=== PATIENT | female | born 1980 | race African-American/Black ===

== ENCOUNTER 2019-03-19 09:11 | Emergency (ER) | payer OTHER ==
[~2019-03-19] VITALS: Ht 160 cm; Wt 65.0 kg
--- OUTSIDE RECORDS SUMMARY | 2019-03-19 09:15 | XMS REPORT | Summary of Care ---
Author Author [facility] - Health Organization [facility] - Health Address Unknown Phone Unavailable Care Team Providers Care Hockey Player Name Role Phone Chase Gil PCP Annalise Lowery MD 37 Reason for Visit * Reason Comments Assessment patient is having some symthoms, black out spell. weak Encounter Details Care Team Description Date Type Department Karyn Turner Rp, MD [address] [place] [id number] Assessment (patient is having some symthoms, black out spell. weak ) 03/15/[address] [facility] Hematology-Oncology - [address], [address] [place] [address] Allergies Comments Active Allergy Reactions Severity Noted Date Paradoxical rxn, ok to use children's dose Diphenhydramine Hcl Palpitations 05/04/2014 confusion Ciprofloxacin Anaphylaxis, 11/01/2014 Swelling, Unknown - See comments Meperidine Hcl 09/18/2005 Iron Dextran Anaphylaxis 11/20/2012 Morphine Hallucination 06/26/2011 s Makes very ill, nauseated. Penicillins Other - See 08/02/2015 comments Promethazine Hcl 09/18/2005 Rapid heart rate Ketorolac Tromethamine Unknown - See 07/02/2010 comments Diluted Iron Sucrose Anxiety, 10/19/2015 Hives documented as of this encounter (statuses as of 03/15/2019) Medications End Date Status Medication Sig Dispensed Refills Start Date Active acetaminophen (TYLENOL) Take 325 mg 0 325 mg tablet by mouth every 6 (six) hours as needed for Pain (scale 4-6). Active Lrkp-OA-[id number]-K-Fmzqerb TK 1 T PO BID 60 tablet 5 Sodium (FERRAPLUS 90) 9 54-0-51-120-50 az-xs-mrc-mg-mg TabIndications: Iron deficiency anemia secondary to inadequate dietary iron intake, Menorrhagia with regular cycle Active metroNIDAZOLE 0.75 % Insert 1 70 g 0 vaginal gelIndications: Applicator 9 BV (bacterial vaginosis) into vagina at bedtime. Active apixaban 2.5 mg Take 1 tablet 60 tablet 3 tabletIndications: by mouth 2 9 Hypercoagulable state, (two) times History of pulmonary daily. embolism, History of DVT (deep vein thrombosis) Active Polyethylene Glycol 3350 Take 1 Packet 12 Packet 0 (MIRALAX) 17 gram by mouth 9 powderIndications: every 2 (two) Constipation, unspecified hours as constipation type needed for Constipation for up to 12 doses. Active ondansetron 4 mg Take 1 tablet 10 tablet 0 disintegrating by mouth 9 tabletIndications: every 8 Constipation, unspecified (eight) hours constipation type as needed for Nausea and Vomiting (N/V) for up to 10 doses. Active dicyclomine (BENTYL) 20 Take 1 tablet 15 tablet 0 mg tabletIndications: by mouth 3 9 Generalized abdominal (three) times pain daily as needed for Abdominal pain. 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 Swelling, mass, or lump in head and neck 09/18/2005 Cellulitis and abscess of neck 09/18/2005 documented as of this encounter (statuses as of 03/15/2019) Social History Date Tobacco Use Types Packs/Day Years Used Never Smoker Cigarettes, 0.1 0.12 Cigars Smokeless Tobacco: Never Used Drinks/Week oz/Week Comments Alcohol Use socially No Sex Assigned at Date Recorded Not on file Industry Job Start Date Occupation Not on file Not on file Not on file Travel End Travel History Travel Start No recent travel history available. documented as of this encounter Last Filed Vital Signs Not on filedocumented in this encounter Plan of Treatment Care Team Description Date Type Specialty Karyn Turner Rp, MD [address] [place] [id number] [phone] 03/28/2019 Office Visit Oncology Order Schedule Name Type Priority Associated Diagnoses 10 Occurrences starting 03/15/2019 until 03/15/2020 CBC WITH DIFFERENTIAL LAB Routine Iron deficiency anemia secondary to inadequate dietary iron intake History of DVT (deep vein thrombosis) Iron deficiency 6 Occurrences starting 03/15/2019 until 03/15/2020 FERRITIN SERUM LAB Routine Iron deficiency anemia secondary to inadequate dietary iron intake History of DVT (deep vein thrombosis) Iron deficiency 10 Occurrences starting 03/15/2019 until 03/15/2020 VITAMIN B12, LEVEL LAB Routine Iron deficiency anemia secondary to inadequate dietary iron intake History of DVT (deep vein thrombosis) Iron deficiency 10 Occurrences starting 03/15/2019 until 03/15/2020 BASIC METABOLIC PANEL LAB Routine Iron deficiency anemia (NA, K, CL, CO2, GLUCOSE, secondary to inadequate BUN, CREATININE, CA) dietary iron intake History of DVT (deep vein thrombosis) Iron deficiency 10 Occurrences starting 03/15/2019 until 03/15/2020 FOLATE LAB Routine Iron deficiency anemia secondary to inadequate dietary iron intake History of DVT (deep vein thrombosis) Iron deficiency 10 Occurrences starting 03/15/2019 until 03/15/2020 HEPATIC FUNCTION PANEL LAB Routine Iron deficiency anemia (77666) (ALB,T.PRO,BILI secondary to inadequate T,BU/BC,ALT,AST,ALK PHOS) dietary iron intake History of DVT (deep vein thrombosis) Iron deficiency Health Maintenance Due Date Last Done Comments DTaP,Tdap,and Td Vaccines 02/26/1999 (1 - Tdap) INFLUENZA VACCINE (#1) 2019 PAP SMEAR 12/03/2021 12/03/2018, 10/17/2015, 01/02/2011, Additional history exists PNEUMOCOCCAL 0-64 YEARS Aged Out No longer eligible based COMBINED SERIES on patient's age to complete this topic documented as of this encounter Results Not on filedocumented in this encounter Visit Diagnoses Diagnosis Iron deficiency anemia secondary to inadequate dietary iron intake - Primary History of DVT (deep vein thrombosis) Personal history of venous thrombosis and embolism Iron deficiency Other disorders of iron metabolism documented in this encounter Insurance Type Payer Benefit Subscriber ID Effective Phone Address Plan / Dates Group [facility] NATHNA ALLISONABI [facility] [id number] 2018-P resent documented as of this encounter Advance Directives Patient Entry Level Civil Engineer Explanation Type Date Recorded Advance Directives 12/12/2014 10:50 AM and Living Will Power of Pencil Sorter 07/20/2015 10:00 AM
--- OUTSIDE RECORDS SUMMARY | 2019-03-19 09:15 | XMS REPORT | Summary of Care ---
Author Author [facility] - Health Organization [facility] - Health Address Unknown Phone Unavailable Care Team Providers Care Medical Records Analyst Name Role Phone Chase Gil PCP Annalise Lowery MD 37 Reason for Visit * Reason Comments Assessment patient is having some symthoms, black out spell. weak Encounter Details Care Team Description Date Type Department Karyn Turner Rp, MD [address] [place] [address] Assessment (patient is having some symthoms, black out spell. weak ) 03/15/2019 Telephone [facility] Hematology-Oncology - [address], [address] [place] [address] Allergies Comments Active Allergy Reactions [...] as needed for Pain (scale 4-6). 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 Swelling, mass, or lump in head and [...] Date Type Specialty Karyn Turner Rp, MD [address] [place] [address] [phone] 03/28/2019 Office Visit Oncology Order Schedule Name [...] FUNCTION PANEL LAB Routine Iron deficiency anemia (37416) (ALB,T.PRO,BILI secondary to inadequate T,BU/BC,ALT,AST,ALK PHOS) dietary [...] Effective Phone Address Plan / Dates Group [facility] [place]ATHAN ALLISONABI [facility] [id number] 2018-P resent documented as of this encounter Advance Directives Patient Instructor Decorating Explanation Type Date Recorded Advance Directives 12/12/2014 10:50 AM and Living Will Power of Irrigation Engineer 07/20/2015 10:00 AM
--- OUTSIDE RECORDS SUMMARY | 2019-03-19 09:15 | XMS REPORT | Summary of Care ---
Author Author [facility] - Health Organization [facility] - Health Address Unknown Phone Unavailable Care Team Providers Care Paper Spooler Name Role Phone Chase Gil PCP Annalise Lowery MD 37 Reason for Visit * Reason Comments Assessment patient is having some symthoms, black out spell. weak Encounter Details Care Team Description Date Type Department Karyn Turner Rp, MD [address] [place] [address] Assessment (patient is having some symthoms, black out spell. weak ) 03/15/2019 Telephone [facility] Hematology-Oncology - [address], [address] [place] [address] Allergies Comments Active Allergy Reactions [...] as needed for Pain (scale 4-6). 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 Swelling, mass, or lump in head and [...] Date Type Specialty Karyn Turner Rp, MD [address] [place] [address] [phone] 03/28/2019 Office Visit Oncology Order Schedule Name [...] FUNCTION PANEL LAB Routine Iron deficiency anemia (15562) (ALB,T.PRO,BILI secondary to inadequate T,BU/BC,ALT,AST,ALK PHOS) dietary [...] Effective Phone Address Plan / Dates Group [facility] NATHAN ALLISONABI [facility] [id number] 2018-P resent documented as of this encounter Advance Directives Patient Investigations Director Explanation Type Date Recorded Advance Directives 12/12/2014 10:50 AM and Living Will Power of Stone Hand 07/20/2015 10:00 AM
--- OUTSIDE RECORDS SUMMARY | 2019-03-19 09:15 | XMS REPORT | Summary of Care ---
Author Author [facility] - Health Organization [facility] - Health Address Unknown Phone Unavailable Care Team Providers Care Tobacco Grader Name Role Phone Chase Gil Margie PCP Annalise Lowery MD 37 Reason for Visit * Reason Comments LAB WORK Encounter Details Care Team Description Date Type Department Pathology [address] [place] [id number] Vls-Lab Iron deficiency anemia secondary to inadequate dietary iron intake; History of DVT (deep vein thrombosis); Iron deficiency 03/15/2019 Resistance [place] [facility] Visit PHLEBOTOMY/LAB [address] [facility] [address] [place] [address] Allergies Comments Active Allergy Reactions Severity Noted [...] as needed for Pain (scale 4-6). 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 Swelling, mass, or lump in head [...] Date Type Specialty Karyn Turner Rp, MD [address] [place] [address] [phone] 03/28/2019 Office Visit Oncology Health Maintenance Due Date Last Done Comments [...] intake History of DVT (deep vein thrombosis) Personal history of venous thrombosis and embolism Iron deficiency Other disorders of iron metabolism documented in this encounter Insurance Type Payer Benefit Subscriber ID Effective Phone Address Plan / Dates Group [facility] [id number] 2018-P resent documented as of this encounter Advance Directives Patient Assembly Riveter Explanation Type Date Recorded Advance Directives 12/12/2014 10:50 AM and Living Will Power of Window Cutter 07/20/2015 10:00 AM
--- OUTSIDE RECORDS SUMMARY | 2019-03-19 09:15 | XMS REPORT ---
[facility] Address Unknown Phone Unavailable Care Team Providers Care Bun Panner Name Role Phone Unavailable Unavailable Payers Payer Name Policy Type Policy Number Effective Date Expiration Date Problems This patient has no known problems. Allergies, Adverse Reactions, Alerts Allergy Name Allergy Type Status Severity Reaction(s) Onset Date Inactive Date Treating Clinician Comments promethazine HCl DA Active [place] 2014-11-06 00:00:00 ketorolac tromethamine DA Active [place] 2014-11-06 00:00:00 iron dextran complex DA Active [place] 2014-11-06 00:00:00 morphine DA Active U 2014-11-06 00:00:00 codeine DA Active [place] 2014-11-06 00:00:00 fentanyl DA Active U 2014-11-06 00:00:00 meperidine DA Active U 2014-11-06 00:00:00 diphenhydramine DA Active U 2014-11-06 00:00:00 Medications This patient has no known medications. Encounters Start Date/Time End Date/Time Encounter Type Admission Type Attending Clinicians Care Facility Care Department Encounter ID 2018-12-13 03:50:00 2018-12-13 03:50:00 Emergency E [id number] Results Test Description Test Time Test Comments Text Results Atomic Results Result Comments URINALYSIS COMPLETE 2018-12-29 14:12:00 UA COLOR (test code=COLU) STRAW YEL/STRAW UA APPEARANCE (test code=APPU) CLEAR CLEAR UA GLUCOSE DIPSTICK (test code=DGLUU) NEGATIVE NEGATIVE UA BILIRUBIN DIPSTICK (test code=BILU) NEGATIVE NEGATIVE UA KETONE DIPSTICK (test code=KETU) NEGATIVE NEGATIVE UA SPECIFIC GRAVITY (test code=SGU) > 1.060 1.005-1.030 UA BLOOD DIPSTICK (test code=CHADWICK) NEGATIVE NEGATIVE UA PH DIPSTICK (test code=MARYANNE) 6.0 5.0-7.0 UA PROTEIN DIPSTICK (test code=PROU) NEGATIVE NEGATIVE UA UROBILINIOGEN DIPSTICK (test code=URO) 0.2 mg/dL 0.2-1.0 UA NITRITE DIPSTICK (test code=NICHOL) NEGATIVE NEGATIVE UA LEUKOCYTE ESTERASE DIPSTICK (test code=LEUU) NEGATIVE NEGATIVE UA WBC (test code=WBCU) 0-3 WBC/HPF 0-3 UA RBC (test code=RBCU) 0-3 RBC/HPF 0-3 UA BACTERIA (test code=BACU) NONE SEEN /HPF NONE SEEN UA SQUAMOUS CELLS (test code=SQU) 0-5 /HPF NONE SEEN - CT ABD PELVIS [id number] 13:06:00 Name: KAREY BRO [facility] : 1980 Age/S: 38 / F [address] [place] [address] Blvd Unit #: [id number] Loc: [place] [address] Phys: Bernard Paiz Acct: [id number] Dis Date: Status: REG ER PHONE #: [phone] Exam Date: 12/29/2018 1237 FAX #: [phone] Reason: Chest pain, abdominal pain, blood in stool EXAMS: CPT CODE: [id number] CT ABD PELVIS W/CONT 05764 PROCEDURE: CTA CHEST CT abdomen and pelvis with contrast INDICATION: Chest pain and shortness of breath. Upper abdominal and epigastric pain COMPARISON: Chest x-ray 12/29/2018. TECHNIQUE: CTA of the pulmonary arteries was performed with 100 ml Isovue 300 intravenous contrast. Helical imaging performed apices to the lung bases. Multiplanar and 3-D MIP angiographic reconstructions are reviewed. Then, multiple axial images from the lung bases to the symphysis were obtained in the delayed venous phase. Coronal and sagittal reconstructed images were performed. CT imaging performed at this location utilizes radiation dose optimization techniques which include one or more of the following: -Automated exposure control -Adjustment of the mA and/or kV according to patient size -Use of iterative reconstruction technique CT Radiation Dose DLP 495.27 mGy-cm FINDINGS: CTA CHEST: PULMONARY ARTERIES: Normal enhancement without intraluminal filling defect. MEDIASTINUM: The thoracic aorta is normal. The mediastinal contents are normal. LUNGS: The lungs are clear. No pleural abnormality. MUSCULOSKELETAL: The skeleton is intact. CT ABDOMEN AND PELVIS: LIVER: Anterior right hepatic cyst measures 9 mm. GALLBLADDER: Normal. SPLEEN: Normal. PAGE 1 Signed Report (CONTINUED) Name: KAREY BRO [facility] : 1979 Age/S: 38 / F [address] [place] [address] Blvd Unit #: [id number] Loc: [place] [address] Phys: Bernard Paiz Acct: [id number] Dis Date: Status: REG ER PHONE #: [phone] Exam Date: 12/29/2018 1237 FAX #: [phone] Reason: Chest pain, abdominal pain, blood in stool EXAMS: CPT CODE: [id number] CT ABD PELVIS W/CONT 67080 <Continued> PANCREAS: Normal. ADRENALS: Normal. KIDNEYS: Right kidney is partially located in the pelvis. Left kidney appears normal. No hydronephrosis or renal stones are present bilaterally. BOWEL: The stomach, small bowel and colon are unremarkable. APPENDIX: Normal, retrocecal in location. PERITONEUM: No free intraperitoneal fluid or air. RETROPERITONEUM: No adenopathy. The aorta is normal. PELVIS: Uterus is anteverted. Uterus is heterogenous and enlarged measuring 10.8 cm in length. Defect in the anterior uterine wall may represent previous scar. Bilateral ovarian cysts are present, right greater than left. No lymphadenopathy is present. Urinary bladder is not distended. MUSCULOSKELETAL: The skeleton is intact. IMPRESSION: 1. No acute process within chest. No pulmonary embolus. 2. No acute process identified within abdomen or pelvis. 3. Heterogenous enlarged uterus with probable scar. 4. Probable right hepatic cyst. SL: [id number] at 1306 Reported and signed by: Shun Rodriguez M.D. CC: Bernard SANDOVAL Technologist:Milton Guidry, RT(R) CTDI: DLP: Trnscb Date/Time: 12/29/2018 (1188) [email or web address] Orig Print D/T: S: 12/29/2018 (2806) PAGE 2 Signed Report - CTA CHEST FOR [id number] 13:06:00 [facility] 1980 Age/S: 38 / F [address] [place] [address] Unit #: [id number] Loc: [place] [address] Phys: Molly Paiz Acct: [id number] Di s Date: Status: REG ER PHONE #: Exam Date: 12/29/2018 1233 FAX #: Reason: Chest pain, sob, history of multiple VTE EXAMS: CPT CODE: [id number] [place] [address] PROCEDURE: CTA CHEST CT abdomen and pelvis with contrast INDICATION: Chest pain and s hortness of breath. Upper abdominal and epigastric pain COM PARISON: Chest x-ray 12/29/2018. TECHNIQUE: CTA of the pulmonary ar teries was performed with 100 ml Isovue 300 intravenous contrast. Helical imaging performed apices to the lung bases. Multiplanar and 3-D MIP angio graphic reconstructions are reviewed. Then, multiple axial images from th e lung bases to the symphysis were obtained in the delayed venous phase. Coronal and sagittal reconstructed images were performed. CT imaging performed at this location utilizes radiation dose optimization t echniques which include one or more of the following: -Automated exposure control -Adjustment of the mA and/or kV according to patient size -U se of iterative reconstruction technique CT Radiation Dose DLP 495.27 mGy- cm FINDINGS: CTA CHEST: PULM ONARY ARTERIES: Normal enhancement without intraluminal filling defect. MEDIASTINUM: The thoracic aorta is normal. The mediastinal contents are normal. LUNGS: The lungs are clear. No pleural abnormali ty. MUSCULOSKELETAL: The skeleton is intact. CT ABDO MEN AND PELVIS: LIVER: Anterior right hepatic cyst measures 9 mm. GALLBLADDER: Normal. SPLEEN: Normal. PAGE 1 Signed Report (CONTINUED) Name: KAREY BRO [facility] [place] : 1979 Age/S: 38 / F [address] [place] [address] Unit #: [id number] Loc: [place] [address] Phys: Bernard Paiz Acct: [id number] Dis Date: Status: REG ER PHONE #: [phone] Exam Date: 12/29/2018 1236 FAX #: [phone] Reason: Chest pain, sob, history of multiple VTE EXAMS: CPT CODE: [id number] [place] [address] <Continued> PANCREAS: Normal. ADRENALS: Normal. KIDNEYS: Right kidney is partially located in the pelvis. Left kidney appears normal. No hydronephrosis or renal stones are present bilaterally. BOWEL: The stomach, small bowel and colon are unremarkable. APPENDIX: Normal, retrocecal in location. PERITONEUM: No free intraperitoneal fluid or air. RETROPERITONEUM: No adenopathy. The aorta is normal. PELVIS: Uterus is anteverted. Uterus is heterogenous and enlarged measuring 10.8 cm in length. Defect in the anterior uterine wall may represent previous scar. Bilateral ovarian cysts are present, right greater than left. No lymphadenopathy is present. Urinary bladder is not distended. MUSCULOSKELETAL: The skeleton is intact. IMPRESSION: 1. No acute process within chest. No pulmonary embolus. 2. No acute process identified within abdomen or pelvis. 3. Heterogenous enlarged uterus with probable scar. 4. Probable right hepatic cyst. SL: [id number] at 1306 Reported and signed by: Shun Rodriguez M.D. CC: Bernard SANDOVAL Technologist:RT Afia(R) CTDI: DLP: Trnscb Date/Time: 12/29/2018 (1306) [email or web address] Orig Print D/T: S: 12/29/2018 (8391) PAGE 2 Signed Report COMPREHENSIVE METABOLIC [id number] 11:58:00* Test Item Value Reference Range Comments SODIUM (test code=NA) 137 mEq/L 134-147 POTASSIUM (test code=K) 3.8 mEq/L 3.4-5.0 CHLORIDE (test code=CL) 107 mEq/L 100-108 CARBON DIOXIDE (test code=CO2) 27 mEq/L 21-33 ANION GAP (test code=GAP) 7 0-20 GLUCOSE (test code=GLU) 86 mg/dL 70-110 BLOOD UREA NITROGEN (test code=BUN) 7 mg/dL 7-18 GLOMERULAR FILTRATION RATE (test code=GFR) 113.3 105-110 Units of measure=ml/min/1.73 m2 CREATININE (test code=CREAT) 0.7 mg/dL 0.6-1.3 TOTAL PROTEIN (test code=PROT) 8.6 g/dL 6.4-8.2 ALBUMIN (test code=ALB) 4.10 g/dL 3.4-5.0 CALCIUM (test code=CA) 8.7 mg/dL 8.0-10.5 BILIRUBIN TOTAL (test code=BILT) 0.20 mg/dL 0.0-1.0 SGOT/AST (test code=AST) 14 IUnit/L 15-37 SGPT/ALT (test code=ALT) 24 IUnit/L 15-65 ALKALINE PHOSPHATASE TOTAL (test code=ALKP) 59 IUnit/L 20-125 [id number] 11:58:00* Test Item Value Reference Range Comments LIPASE (test code=LIP) 154 IUnit/L 73-393 [id number] 11:58:00* Test Item Value Reference Range Comments TROPONIN-I (test code=TROPI) < 0.015 ng/mL 0.000-0.045 Negative: <=0.045 Positive: >=0.046 Correlation with serial results, other cardiac markers andclinical findings is necessary to determine the clinicalsignificance of this result. Results using different methodologies should not be comparedto one another as quantitative results may vary by method. PROTHROMBIN [id number] 11:55:00* Test Item Value Reference Range Comments PROTHROMBIN TIME PATIENT (test code=PTP) 11.9 SECONDS 9.3-12.9 INTERNATIONAL NORMAL RATIO (test code=INR) 1.1 0.8-1.2 TARGET INR BY INDICATION Indication INR1. Prophylaxis of venous thrombosis 2.0 - 3.0 (orthopedic surgery), Prophylaxis of venous thrombosis (other than high-risk surgery), Treatment of Deep Vein Thrombosis/Pulmonary Embolism, Prevention of systemic embolism - Tissue heart valves, Acute Myocardial Infarction (to prevent systemic embolism), Valvular heart disease, Atrial Fibrillation, Bileaflet mechanical valve in aortic position.2. Mechanical prosthetic valves (high risk), 2.5 - 3.5 Presence of Lupus Anticoagulant or Antiphospholipid Antibodies, Prevention of systemic embolism - Acute Myocardial Infarction (to prevent recurrent infarct). THROMBOPLASTIN TIME [id number] 11:55:00* Test Item Value Reference Range Comments THROMBOPLASTIN TIME PARTIAL (test code=PTT) 24.1 Seconds 25.0-39.5 Therapeutic Range: 50.4 - 88.3 Seconds Effective 10/19/2018 HCG SERUM [id number] 11:49:00* Test Item Value Reference Range Comments HCG SERUM QUAL (test code=HCGQL) SERUM NEGATIVE NEGATIVE CBC W/AUTO [id number] 11:43:00* Test Item Value Reference Range Comments WHITE BLOOD CELL (test code=WBC) 4.13 x10 3/uL 4.5-11.0 RED BLOOD CELL (test code=RBC) 3.78 x10 6/uL 3.54-5.02 HEMOGLOBIN (test code=HGB) 8.5 g/dL 11.0-15.0 HEMATOCRIT (test code=HCT) 28.8 % 33.0-45.0 MEAN CELL VOLUME (test code=MCV) 76.2 fL 81.0-99.0 MEAN CELL HGB (test code=MCH) 22.5 pg 27.0-33.0 MEAN CELL HGB CONCETRATION (test code=MCHC) 29.5 g/dL 33.0-37.0 RED CELL DISTRIBUTION WIDTH CV (test code=RDW) 16.4 % 11.5-14.5 RED CELL DISTRIBUTION WIDTH SD (test code=RDW-SD) 46.0 fL 37.0-54.0 PLATELET COUNT (test code=PLT) 430 x10 3/uL 150-400 MEAN PLATELET VOLUME (test code=MPV) 10.0 fL 7.0-9.0 NEUTROPHIL % (test code=NT%) 51.8 % 56.0-77.0 IMMATURE GRANULOCYTE % (test code=IG%) 0.5 % 0.0-2.0 LYMPHOCYTE % (test code=LY%) 36.1 % 14.0-32.0 MONOCYTE % (test code=MO%) 9.0 % 4.8-9.0 EOSINOPHIL % (test code=EO%) 2.4 % 0.3-3.7 BASOPHIL % (test code=BA%) 0.2 % 0.0-2.0 NUCLEATED RBC % (test code=NRBC%) 0.0 % 0-0 NEUTROPHIL # (test code=NT#) 2.14 x10 3/uL 2.0-7.6 IMMATURE GRANULOCYTE # (test code=IG#) 0.02 x10 3/uL 0.00-0.03 LYMPHOCYTE # (test code=LY#) 1.49 x10 3/uL 1.0-3.8 MONOCYTE # (test code=MO#) 0.37 x10 3/uL 0.1-0.8 EOSINOPHIL # (test code=EO#) 0.10 x10 3/uL 0.0-0.2 BASOPHIL # (test code=BA#) 0.01 x10 3/uL 0.0-0.2 NUCLEATED RBC # (test code=NRBC#) 0.00 x10 3/uL 0.0-0.1 MANUAL DIFF REQUIRED (test code=MDIFF) NO - XR CHEST 1 [id number] 11:21:00 FAX: Bernard Paiz [phone] [place]: St: REG Name: KAREY CARDENAS [facility] : [birth year] Age/S: 38/F [address] [place] [address] Unit #: [id number] Loc: [address] [place] [address] Phys: Bernard Paiz Acct: [id number] Dis Date: Status: REG ER PHONE #: [phone] Exam Date: 12/29/2018 1111 FAX #: [phone] Reason: Chest pain, sob EXAMS: CPT CODE: [id number] XR CHEST 1 V [id number] CHEST 1 VIEW: 12/29/2018 COMPARISON: November 26, 2014 CLINICAL HISTORY: Chest pain, sob FINDINGS: The cardiovascular silhouette is normal in size. No infiltrates or pulmonary edema is present. No pleural eff usions are seen. IMPRESSION: No acute pulmona ry disease. at 1121 Reported and signed by: Mauro Ziegler M.D. CC: Bernard SANDOVAL Technologist: RT Jose(R) Trnscrd Benja e/Time/By: 12/29/2018 (1121) : By: [email or web address] Orig Print D/T: S: 2018 (1120) PAGE 1 Signed Report
--- OUTSIDE RECORDS SUMMARY | 2019-03-19 09:16 | XMS REPORT | Summary of Care ---
Author Author [facility] - Health Organization [facility] - Health Address Unknown Phone Unavailable Care Team Providers Care Net Washer Name Role Phone Chase Gil PCP Annalise Lowery MD 37 Reason for Visit * Reason Comments Assessment patient is having some symthoms, black out spell. weak Encounter Details Care Team Description Date Type Department Karyn Turner Rp, MD [address] [place] [id number] Assessment (patient is having some symthoms, black out spell. weak ) 03/15/2019 Telephone [facility] Hematology-Oncology - [address], [address] [place] [address] Allergies Comments Active Allergy Reactions [...] as of this encounter (statuses as of 03/17/2019) Medications End Date Status Medication Sig Dispensed Refills Start Date Active acetaminophen (TYLENOL) Take 325 mg 0 325 mg tablet by mouth every 6 (six) hours as needed for Pain (scale 4-6). Active Ijre-[id number]-Tajrvqo TK 1 T PO BID 60 tablet 5 Sodium (FERRAPLUS 90) 9 41-7-64-120-50 op-ab-rll-mg-mg TabIndications: Iron deficiency anemia secondary to inadequate [...] as of this encounter (statuses as of 03/17/2019) Active Problems Problem Noted Date Abdominal pain 05/03/2014 Abdominal pain, other specified site 03/16/2014 Menorrhagia 03/16/2014 History of venous thrombosis and embolism 03/16/2014 Chest wall pain 03/10/2014 Pelvic kidney 11/03/2013 Iron deficiency anemia 11/10/2011 Overview: ICD10 Diagnosis Term Clin Asst Utility Metrorrhagia 07/11/2011 DVT of upper extremity (deep vein thrombosis) 07/11/2011 Overview: L arm 06/27/2011 [facility]. Swelling, mass, or lump in head and neck 09/18/2005 Cellulitis and abscess of neck 09/18/2005 documented as of this encounter (statuses as of 03/17/2019) Social History Date Tobacco Use Types Packs/Day [...] Date Type Specialty Karyn Turner Rp, MD [address] [place] [address] [phone] 03/28/2019 Office Visit Oncology Order Schedule Name Type Priority Associated Diagnoses 10 Occurrences starting 03/15/2019 until 03/15/2020, 1 completed CBC WITH DIFFERENTIAL LAB Routine Iron deficiency anemia secondary to inadequate dietary iron intake History of DVT (deep vein thrombosis) Iron deficiency 6 Occurrences starting 03/15/2019 until 03/15/2020, 1 completed FERRITIN SERUM LAB Routine Iron deficiency anemia secondary to inadequate dietary iron intake History of DVT (deep vein thrombosis) Iron deficiency 10 Occurrences starting 03/15/2019 until 03/15/2020, 1 completed VITAMIN B12, LEVEL LAB Routine Iron deficiency anemia secondary to inadequate dietary iron intake History of DVT (deep vein thrombosis) Iron deficiency 10 Occurrences starting 03/15/2019 until 03/15/2020, 1 completed BASIC METABOLIC PANEL LAB Routine Iron deficiency anemia (NA, K, CL, CO2, GLUCOSE, secondary to inadequate BUN, CREATININE, CA) dietary iron intake History of DVT (deep vein thrombosis) Iron deficiency 10 Occurrences starting 03/15/2019 until 03/15/2020, 1 completed FOLATE LAB Routine Iron deficiency anemia secondary to inadequate dietary iron intake History of DVT (deep vein thrombosis) Iron deficiency 10 Occurrences starting 03/15/2019 until 03/15/2020, 1 completed HEPATIC FUNCTION PANEL LAB Routine Iron deficiency anemia (77269) (ALB,T.PRO,BILI secondary to inadequate T,BU/BC,ALT,AST,ALK PHOS) dietary [...] topic documented as of this encounter Results * HEPATIC FUNCTION PANEL (64382) (ALB,T.PRO,BILI T,BU/BC,ALT,AST,ALK PHOS) (03/15/2019 4:56 PM CDT) Pathologist [facility] TOTAL BILI 0.1 0.1 - 1.1 mg/dL [facility] BILI UNCON 0.0 (L) 0.1 - 1.1 mg/dL [facility] BILI CONJ 0.0 0.0 - 0.3 mg/dL [facility] T PROTEIN 7.1 6.3 - 8.2 g/dL [facility] ALBUMIN 4.0 3.5 - 5.0 g/dL [facility] ALK PHOS 49 34 - 122 U/L [facility] ALT(SGPT) 24 9 - 51 U/L [facility] AST(SGOT) 22 13 - 40 U/L [facility] Specimen Blood - VENOUS Performing Organization Address City/State/Zipcode Phone Number [facility] CLIA: [id number], [address] [place], [place] [id number] [facility] * FOLATE (03/15/2019 4:56 PM CDT) [facility] FOLATE SER >20.0 (H)Comment: Biotin has 3.0 - 20.0 ng/mL [facility] been reported to cause a SERVICES positive bias, interpret results relative to patient's use of biotin. Specimen Blood - VENOUS Performing Organization Address City/State/Zipcode Phone Number [facility] SERVICES CLIA: [id number], [address] [place], [place] [id number] [facility] * BASIC METABOLIC PANEL (NA, K, CL, CO2, GLUCOSE, BUN, CREATININE, CA) (03/15/2019 4:56 PM CDT) [facility] NA 140 135 - 145 mmol/L [facility] K 4.0 3.5 - 5.0 mmol/L [facility] CL 103 98 - 108 mmol/L [facility] CO2 TOTAL 28 23 - 31 mmol/L [facility] AGAP 9 2 - 16 [facility] BUN 9 7 - 23 mg/dL [facility] GLUCOSE 89 70 - 110 mg/dL [facility] CREATININE 0.70 0.50 - 1.04 mg/dL [facility] CALCIUM 9.7 8.6 - 10.6 mg/dL [facility] eGFR 93.2 mL/min/1.73m2 [facility] [place] [facility] eGFR 112.9 mL/min/1.73m2 [facility]) Specimen Blood - VENOUS Narrative Performed At [facility] of Glomerular Filtration Rate (GFR) and Staging of Kidney Disease* [facility] + + + [facility] | GFR (mL/min/1.73 m2)| With Kidney Damage|Without Kidney Damage CAMPUS + + + + |>90|Stage one| Normal + + + + |60-89|Stage two| Decreased GFR + + + + |30-59|Stage three| Stage three + + + + |15-29|Stage four | Stage four + + + + |<15 (or dialysis)|Stage five | Stage five + + + + *Each stage assumes the associated GFR level has been in effect for at least three months.Stages 1 to 5, with or without kidney disease, indicate chronic kidney disease. Notes: Determination of stages one and two (with eGFR >59mL/min/1.73 m2) requires estimation of kidney damage for at least three months as defined by structural or functional abnormalities of the kidney, manifested by either: Pathological abnormalities or Markers of kidney damage (including abnormalities in the composition of the blood or urine or abnormalities in imaging tests). Performing Organization Address City/State/Zipcode Phone Number [facility] CLIA: [id number], [address] [place] [address] [facility] * VITAMIN B12, LEVEL (03/15/2019 4:56 PM CDT) VIT B12 675 240 - 930 pg/mL [facility] SERVICES Specimen Blood - VENOUS Narrative Performed At Biotin has been reported to cause a positive bias, interpret results relative to [facility] patient's use of biotin. SERVICES Performing Organization Address City/State/Zipcode Phone Number [facility] SERVICES CLIA: [id number], [address] [place] [address] [facility] * FERRITIN SERUM (03/15/2019 4:56 PM CDT) FERRITIN 7.3 6.0 - 137.0 ng/mL [facility] Specimen Blood - VENOUS Narrative Performed At [facility] has been reported to cause a negative bias, interpret results relative to [facility] patient's use of biotin. [facility] Performing Organization Address City/State/Zipcode Phone Number [facility] CLIA: [id number], [address] [place] [address] [facility] * CBC WITH DIFFERENTIAL (03/15/2019 4:56 PM CDT) WBC 4.58 4.30 - 11.10 [facility] 10*3/L [facility] RBC 3.96 3.93 - 5.25 10*6/L [facility] HGB 8.6 (L) 11.6 - 15.0 g/dL [facility] HCT 29.6 (L) 35.7 - 45.2 % [facility] MCV 74.7 (L) 80.6 - 95.5 fL [facility] MCH 21.7 (L) 25.9 - 32.8 pg [facility] MCHC 29.1 (L) 31.6 - 35.1 g/dL [facility] RDW-SD 53.0 (H) 39.0 - 49.9 fL [facility] RDW-CV 19.5 (H) 12.0 - 15.5 % [facility] PLT 416 (H) 166 - 358 10*3/L [facility] MPV 9.4 (L) 9.5 - 12.9 fL [facility] NRBC/100 WBC 0.0 0.0 - 10.0 /100 WBCs [facility] NRBC x10^3 <0.01 10*3/L [facility] GRAN MAT (NEUT) 43.9 % [facility] % [facility] IMM GRAN % 0.20 % [facility] LYMPH % 42.6 % [facility] MONO % 10.3 % [facility] EOS % 2.8 % [facility] BASO % 0.2 % [facility] GRAN MAT 2.01 1.88 - 7.09 10*3/uL [facility] x10^3(ANC) [facility] IMM GRAN x10^3 <0.03 0.00 - 0.06 10*3/uL [facility] LYMPH x10^3 1.95 1.32 - 3.29 10*3/uL [facility] MONO x10^3 0.47 0.33 - 0.92 10*3/uL [facility] EOS x10^3 0.13 0.03 - 0.39 10*3/uL [facility] BASO x10^3 <0.03 0.01 - 0.07 10*3/uL [facility] Specimen Blood - VENOUS Performing Organization Address City/State/Zipcode Phone Number [facility] CLIA: [id number], [address] [place] [address] [facility] documented in this encounter Visit Diagnoses Diagnosis Iron deficiency anemia secondary to inadequate dietary iron intake - Primary History of DVT (deep vein thrombosis) Personal history of venous thrombosis and embolism Iron deficiency Other disorders of iron metabolism documented in this encounter Insurance Type Payer Benefit Subscriber ID Effective Phone Address Plan / Dates 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
--- OUTSIDE RECORDS SUMMARY | 2019-03-19 09:16 | XMS REPORT | Summary of Care ---
Author Author [facility] - Health Organization [facility] - Health Address Unknown Phone Unavailable Care Team Providers Care Payroll And Benefits Coordinator Name Role Phone Chase Gil Margie PCP Annalise Lowery MD 37 Reason for Visit * Reason Comments Assessment Encounter Details Care Team Description Date Type Department Karyn Turner Rp, MD [address] [place] [address] Assessment 03/18/2019 Telephone [facility] Hematology-Oncology [address], [address] [place] [address] Allergies Comments Active Allergy Reactions [...] as of this encounter (statuses as of 03/18/2019) Medications End Date Status Medication Sig Dispensed Refills Start Date Active acetaminophen (TYLENOL) Take 325 mg 0 325 mg tablet by mouth every 6 (six) hours as needed for Pain (scale 4-6). 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 Swelling, mass, or lump in head and neck 09/18/2005 Cellulitis and abscess of neck 09/18/2005 documented as of this encounter (statuses as of 03/18/2019) Social History Date Tobacco Use Types Packs/Day [...] Date Type Specialty Karyn Turner Rp, MD [address] [place] [id number] [phone] 03/28/2019 Office Visit Oncology Health Maintenance Due Date Last Done Comments DTaP,Tdap,and Td Vaccines 02/26/1999 (1 - Tdap) INFLUENZA VACCINE (#1) 2019 PAP SMEAR 12/03/2021 12/03/2018, 10/17/2015, 01/02/2011, Additional history exists PNEUMOCOCCAL 0-64 YEARS Aged Out No longer eligible based COMBINED SERIES on patient's age to complete this topic documented as of this encounter Results Not on filedocumented in this encounter Insurance Type Payer Benefit Subscriber ID Effective Phone Address Plan / Dates Group HMO AETNA AETNA O [id number] 2018-P resent documented as of this encounter Advance Directives Patient Tax Assessor Explanation Type Date Recorded Advance Directives 12/12/2014 10:50 AM and Living Will Power of Customer Marketing Assistant 07/20/2015 10:00 AM
[2019-03-19] MEDS ORDERED: [UNRECOGNIZED DRUG - OTHER] (09:31)
[2019-03-19] MEDS ORDERED: LOVENOX60 MG/0.6 SC (09:31)
--- NOTE | 2019-03-19 10:50 | Diagnostic Imaging Report ---
EXAM: PA and lateral views of the chest. COMPARISON: None CLINICAL HISTORY: Chest pain FINDINGS: Lines/tubes: None. Lungs: Faint small cluster of nodules in the right upper lobe are indeterminate. Pleura: There is no pleural effusion or pneumothorax. Heart and mediastinum: The cardiomediastinal silhouette is normal. Bones and soft tissues: No acute bony abnormalities. IMPRESSION: Indeterminate few cluster of densities in small nodules in the right upper lobe, cannot exclude a small infection. If clinical concern for pneumonia, consider CT chest without contrast for further evaluation. Signed by: Dr. Lashon Guillory M.D. on 03/19/2019 10:47 AM
--- NOTE | 2019-03-19 11:49 | Diagnostic Imaging Report ---
EXAM: Right Upper Extremity Duplex Ultrasound INDICATION: Swelling COMPARISON: None TECHNIQUE: Grayscale, color Doppler and spectral waveform analysis of the right upper extremity venous system and internal jugular vein were performed. FINDINGS: Internal Jugular: Fully compressible with normal spontaneous waveforms Subclavian: Normal spontaneous waveforms Axillary: Fully compressible with normal spontaneous waveforms Brachial: Fully compressible with normal spontaneous waveforms Basilic: Fully compressible with normal spontaneous waveforms Cephalic: Fully compressible with normal spontaneous waveforms IMPRESSION: No evidence of venous thrombosis of the right upper extremity, internal jugular or subclavian veins. Signed by: Dr. Lashon Guillory M.D. on 03/19/2019 11:46 AM
[2019-03-19] MEDS ORDERED: CYCLOBENZAPRINE10 MG PO (11:56)
[2019-03-19 12:22] VITALS: BP 117/75
== END 2019-03-19 12:18 | disposition home or self-care (01) ==
LOC: FSED 09:11
DX: M43.6 Torticollis (principal); D64.9 Anemia, unspecified; Z86.718 Personal history of other venous thrombosis and embolism
CPT/HCPCS: 71046; 80053; 81003; 81025; 85025; 85379; 85610; 93005; 93971; 99284

== ENCOUNTER 2019-05-01 06:55 | Emergency (ER) | payer OTHER ==
[~2019-05-01] VITALS: Ht 160 cm; Wt 64.9 kg
[~2019-05-01 06:55] MED LIST: CYCLOBENZAPRINE10 MG PO; LOVENOX60 MG/0.6 SC; [UNRECOGNIZED DRUG - OTHER]
--- OUTSIDE RECORDS SUMMARY | 2019-05-01 06:58 | XMS REPORT | Summary of Care ---
Author Author [facility] - Health Organization [facility] - Health Address Unknown Phone Unavailable Care Team Providers Care Director Of Reimbursement Name Role Phone Chase Gil Margie PCP Annalise Lowery MD 37 Reason for Visit * Reason Comments Notification Encounter Details Care Team Description Date Type Department Karyn Turner Rp, MD [address] [place] [address] Notification 03/23/2019 Telephone [facility] Hematology-Oncology - [address], [address] [place] [address] Allergies Comments Active Allergy Reactions [...] as of this encounter (statuses as of 03/23/2019) Medications End Date Status Medication Sig Dispensed Refills Start Date Active acetaminophen (TYLENOL) Take 325 mg 0 325 mg tablet by mouth every 6 (six) hours as needed for Pain (scale 4-6). 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 Swelling, mass, or lump in head and neck 09/18/2005 Cellulitis and abscess of neck 09/18/2005 documented as of this encounter (statuses as of 03/23/2019) Social History Date Tobacco Use Types Packs/Day [...] Type Specialty Karyn Turner Rp, MD [address] [place] [address] [phone] 03/28/2019 Office Visit Oncology Health Maintenance Due [...] / Dates Group HMO AETNA AETNA O [id number] 2018-P resent documented as of this encounter Advance Directives Patient Extrusion Die Coordinator Explanation Type Date Recorded Advance Directives 12/12/2014 10:50 AM and Living Will Power of Crowd Controller 07/20/2015 10:00 AM
== END 2019-05-01 07:41 | disposition home or self-care (01) ==
LOC: FSED 06:55
DX: J02.9 Acute pharyngitis, unspecified (principal); D64.9 Anemia, unspecified; Z86.718 Personal history of other venous thrombosis and embolism
CPT/HCPCS: 83518; 99283

== ENCOUNTER 2019-12-07 02:14 | Emergency (ER) | payer OTHER ==
[~2019-12-07] VITALS: Ht 154.9 cm; Wt 65.8 kg
--- OUTSIDE RECORDS SUMMARY | 2019-12-07 02:16 | XMS REPORT | Continuity of Care Document ---
Author Author [facility] t Organization [facility] Address [address] [place] [address] Phone Unavailable Care Team Providers Care Reservation Sales Agent Name Role Phone NONSTAFF PCP Unavailable Doctor Unassigned, Name No Attphys Unavailable Yue BARBOUR, Rp Karyn Attphys Bethany WILDE Attphys Unavailable Payers Payer Name Policy Type Policy Number Effective Date Expiration Date Rian Tolentino o [id number] 2018 00:00:00 [facility] Problems This patient has no known problems. Allergies, Adverse Reactions, Alerts Allergy Name Allergy Type Status Severity Reaction(s) Onset Date Inacti ve Date Treating Clinician Comments Source No Known Allergies DA Active U 2019-09-13 00:00:00 [facility] Morphine Allergy to Substance Active Severe throat swelling /rash/hives 2019-03-19 00:00:00 [facility] Promethazine Allergy to Substance Active Severe throat swelli ng/rash/hives 2019-03-19 00:00:00 [facility] Meperidine Allergy to Substance Active Severe throat swelling /rash/hives 2019-03-19 00:00:00 [facility] Diphenhydramine Allergy to Substance Active Severe throat swe lling/rash/hives 2019-03-19 00:00:00 [facility] promethazine HCl DA Active AK 2014-11-06 00:00:00 [facility] ketorolac tromethamine DA Active U 2014-11-06 00:00:00 [facility] iron dextran complex DA Active SV 2014-11-06 00:00:00 [facility] morphine DA Active U 2014-11-06 00:00:00 [facility] codeine DA Active SV 2014-11-06 00:00:00 [facility] fentanyl DA Active U 2014-11-06 00:00:00 [facility] meperidine DA Active U 2014-11-06 00:00:00 [facility] diphenhydramine DA Active U 2014-11-06 00:00:00 [facility] Medications Ordered Medication Name Filled Medication Name Start Date Stop Da te Current Medication? Ordering Clinician Indication Dosage Frequency Signature (SIG) Comments Components Source Cyclobenzaprine Hcl 10 Mg Tablet Cyclobenzaprine Hcl 10 Mg T ablet 2019-03-19 00:00:00 Yes Saad Wilde Md 10 Three Time s A Day for Muscle Spasm [facility] Enoxaparin Sodium (Lovenox) 60 Mg/0.6 Ml Inj Enoxapari n Sodium (Lovenox) 60 Mg/0.6 Ml Inj Yes 60 Today At 5:00PM [facility] Iron Dextra Iron Dextra Yes [facility] Procedures This patient has no known procedures. Encounters Start Date/Time End Date/Time Encounter Type Admission Type Attendi [facility] Facility Care Department Encounter ID Source 2019-06-08 00:00:00 2019-06-08 00:00:00 Orders Only D catherine Unassigned, [place] [facility] [id number] 2019-05-01 06:55:00 2019-05-01 07:41:00 Departed Emergency Room [facility] [id number] [facility] 2019-03-23 00:00:00 2019-03-23 00:00:00 Telephone Kiersten Turner [facility] [id number] 2019-03-19 09:11:00 2019-03-19 12:18:00 Departed Emergency Room 1 SAAD WILDE [facility] [id number] [facility] 2019-03-18 00:00:00 2019-03-18 00:00:00 Telephone Kiersten Turner [facility] [id number] 2019-03-15 00:00:00 2019-03-15 00:00:00 Telephone Kiersten Turner [facility] [id number] 2018-12-13 03:50:00 2018-12-13 03:50:00 Emergency E [id number] [facility] Results Test Description Test Time Test Comments Results Result Comments Source - XR CHEST 1 V 2019-09-13 14:48:00 [place]: St: REG -- Name: JUSTINA BRO [facility] [place] : 1980 Age/S: 39/F [address] [place] [address] Unit #: [id number] Loc: [place] [address] Phys: Elder Shetty MD Acct: [id number] Dis Date: Status: REG ER PHONE #: [phone] Exam Date: 09/13/2019 1447 FAX #: [phone] Reason: Abdominal Pain EXAMS: CPT CODE: [id number] XR CHEST 1 V 34393 PROCEDURE: Chest, AP on 09/13/2019 at 1443 hours. INDICATION: Abdominal Pain. Difficulty breathing. COMPARISON: None. FINDINGS: Support tubes, catheters, devices: None. There are no visualized pleural effusions. The visualized portions of the lungs are clear with normal pulmonary vasculature. The mediastinal silhouette and jacqui appear normal. No evidence for an acute bony abnormality. IMPRESSION: 1. No evidence for an acute cardiopulmonary process. SL: [id number] at 1448 Reported and signed by: Karthikeyan Alvarez M.D. CC: Technologist: JEY Ponce) Trnscrd Date/Time/By: 09/13/2019 (3551) : By: [email or web address] Orig Print D/T: S: 09/13/2019 (1934) PAGE 1 Signed Report BASIC METABOLIC PANEL 2019-09-13 14:37:00 Test Item SODIUM (test code = NA) 138 mEq/L 134-147 N POTASSIUM (test code = K) 4.0 mEq/L 3.4-5.0 N CHLORIDE (test code = CL) 107 mEq/L 100-108 N CARBON DIOXIDE (test code = CO2) 27 mEq/L 21-33 N ANION GAP (test code = GAP) 8 0-20 N GLUCOSE (test code = GLU) 83 mg/dL 70-110 N BLOOD UREA NITROGEN (test code = BUN) 11 mg/dL 7-18 N GLOMERULAR FILTRATION RATE (test code = GFR) 69.7 105-110 L Units of measure = ml/min/1.73 m2 CREATININE (test code = CREAT) 0.9 mg/dL 0.6-1.3 N CALCIUM (test code = CA) 9.0 mg/dL 8.0-10.5 N HEPATIC FUNCTION [id number] 14:37:00* Test Item Value Reference Range Interpretation Comments TOTAL PROTEIN (test code = PROT) 7.8 g/dL 6.4-8.2 N ALBUMIN (test code = ALB) 4.20 g/dL 3.4-5.0 N BILIRUBIN TOTAL (test code = BILT) 0.1 MG/DL <1.5 N BILIRUBIN DIRECT (test code = BILD) < 0.10 MG/DL 0.0-0.30 N BILIRUBIN INDIRECT (test code = BILIND) 0.00 MG/DL SGOT/AST (test code = AST) 17 IUnit/L 15-37 N SGPT/ALT (test code = ALT) 21 IUnit/L 15-65 N ALKALINE PHOSPHATASE TOTAL (test code = ALKP) 57 IUnit/L 20-125 N [id number] 14:37:00* Test Item Value Reference Range Interpretation Comments LIPASE (test code = LIP) 198 IUnit/L 73-393 N URINALYSIS [id number] 14:34:00* Test Item Value Reference Range Interpretation Comments UA COLOR (test code = COLU) YELLOW YEL/STRAW UA APPEARANCE (test code = APPU) CLEAR CLEAR UA GLUCOSE DIPSTICK (test code = DGLUU) NEGATIVE NEGATIVE UA BILIRUBIN DIPSTICK (test code = BILU) NEGATIVE NEGATIVE UA KETONE DIPSTICK (test code = KETU) NEGATIVE NEGATIVE UA SPECIFIC GRAVITY (test code = SGU) 1.020 1.005-1.030 N UA BLOOD DIPSTICK (test code = CHADWICK) NEGATIVE NEGATIVE UA PH DIPSTICK (test code = MARYANNE) 5.0 5.0-7.0 N UA PROTEIN DIPSTICK (test code = PROU) NEGATIVE NEGATIVE UA UROBILINIOGEN DIPSTICK (test code = URO) 0.2 mg/dL 0.2-1.0 UA NITRITE DIPSTICK (test code = NICHOL) NEGATIVE NEGATIVE UA LEUKOCYTE ESTERASE DIPSTICK (test code = LEUU) NEGATIVE NEGA TIVE UA RBC (test code = RBCU) 0-3 RBC/HPF 0-3 UA WBC NO REFLEX (test code = WBCUCL) 0-3 WBC/HPF 0-3 UA BACTERIA (test code = BACU) 1+ /HPF NONE SEEN A UA SQUAMOUS CELLS (test code = SQU) 0-5 /HPF NONE SEEN UA MUCUS (test code = MUCU) TRACE /LPF NONE SEEN BASIC METABOLIC [id number] 14:32:00* Test Item Value Reference Range Interpretation Comments SODIUM (test code = NA) 138 mEq/L 134-147 N POTASSIUM (test code = K) 4.0 mEq/L 3.4-5.0 N CHLORIDE (test code = CL) 107 mEq/L 100-108 N CARBON DIOXIDE (test code = CO2) 27 mEq/L 21-33 N ANION GAP (test code = GAP) 8 0-20 N GLUCOSE (test code = GLU) 83 mg/dL 70-110 N BLOOD UREA NITROGEN (test code = BUN) 11 mg/dL 7-18 N GLOMERULAR FILTRATION RATE (test code = GFR) 105-110 CREATININE (test code = CREAT) mg/dL 0.6-1.3 CALCIUM (test code = CA) 9.0 mg/dL 8.0-10.5 N HEPATIC FUNCTION [id number] 14:32:00* Test Item Value Reference Range Interpretation Comments TOTAL PROTEIN (test code = PROT) g/dL 6.4-8.2 ALBUMIN (test code = ALB) g/dL 3.4-5.0 BILIRUBIN TOTAL (test code = BILT) MG/DL <1.5 BILIRUBIN DIRECT (test code = BILD) MG/DL 0.0-0.30 SGOT/AST (test code = AST) IUnit/L 15-37 SGPT/ALT (test code = ALT) IUnit/L 15-65 ALKALINE PHOSPHATASE TOTAL (test code = ALKP) IUnit/L 20-125 [id number] 14:32:00* Test Item Value Reference Range Interpretation Comments LIPASE (test code = LIP) 198 IUnit/L 73-393 N CBC W/AUTO [id number] 14:15:00* Test Item Value Reference Range Interpretation Comments WHITE BLOOD CELL (test code = WBC) 4.01 x10 3/uL 4.5-11.0 L RED BLOOD CELL (test code = RBC) 4.06 x10 6/uL 3.54-5.02 N HEMOGLOBIN (test code = HGB) 9.5 g/dL 11.0-15.0 L HEMATOCRIT (test code = HCT) 32.6 % 33.0-45.0 L MEAN CELL VOLUME (test code = MCV) 80.3 fL 81.0-99.0 L MEAN CELL HGB (test code = MCH) 23.4 pg 27.0-33.0 L MEAN CELL HGB CONCETRATION (test code = MCHC) 29.1 g/dL 33.0-37. 0 L RED CELL DISTRIBUTION WIDTH CV (test code = RDW) 17.2 % 11.5- 14.5 H RED CELL DISTRIBUTION WIDTH SD (test code = RDW-SD) 50.6 fL 37 .0-54.0 N PLATELET COUNT (test code = PLT) 385 x10 3/uL 150-400 N MEAN PLATELET VOLUME (test code = MPV) 9.6 fL 7.0-9.0 H NEUTROPHIL % (test code = NT%) 47.6 % 56.0-77.0 L IMMATURE GRANULOCYTE % (test code = IG%) 0.5 % 0.0-2.0 N LYMPHOCYTE % (test code = LY%) 38.7 % 14.0-32.0 H MONOCYTE % (test code = MO%) 9.5 % 4.8-9.0 H EOSINOPHIL % (test code = EO%) 3.5 % 0.3-3.7 N BASOPHIL % (test code = BA%) 0.2 % 0.0-2.0 N NUCLEATED RBC % (test code = NRBC%) 0.0 % 0-0 N NEUTROPHIL # (test code = NT#) 1.91 x10 3/uL 2.0-7.6 L IMMATURE GRANULOCYTE # (test code = IG#) 0.02 x10 3/uL 0.00-0.03 N LYMPHOCYTE # (test code = LY#) 1.55 x10 3/uL 1.0-3.8 N MONOCYTE # (test code = MO#) 0.38 x10 3/uL 0.1-0.8 N EOSINOPHIL # (test code = EO#) 0.14 x10 3/uL 0.0-0.2 N BASOPHIL # (test code = BA#) 0.01 x10 3/uL 0.0-0.2 N NUCLEATED RBC # (test code = NRBC#) 0.00 x10 3/uL 0.0-0.1 N MANUAL DIFF REQUIRED (test code = MDIFF) NO US EXREMEITY VEINS [id number] 11:44:00 [facility] [address] [place] [id number] Patient Name: JUSTINA BRO MR #: [id number] : 1980 Age/Sex: 39/F Req #: [id number] [facility] Physician: Ordered by: SAAD WILDE MD Report #: [id number] Location: [facility] Room/Bed: Procedure: HOPD[facility] Exam Date: 03/19/19 Exam Time: 1138 REPORT STA TUS: Signed EXAM: Right Upper Extremity Duplex Ultrasound INDICATION: Swe lling COMPARISON: None TECHNIQUE: Grayscale, color Doppler and spectr al waveform analysis of the right upper extremity venous system and internal j ugular vein were performed. FINDINGS: Internal Jugular: Fully compr essible with normal spontaneous waveforms Subclavian: Normal spontaneous waveforms Axillary: Fully compressible with normal spontaneous waveforms Brachial: Fully compressible with normal spontaneous waveforms Basi lic: Fully compressible with normal spontaneous waveforms Cephalic: Fu lly compressible with normal spontaneous waveforms IMPRESSION: No ev idence of venous thrombosis of the right upper extremity, internal jugular or subclavian veins. Signed by: Dr. Lashon Guillory M.D. on 9 11:46 AM Dictated By: LASHON GUILLORY MD 1146 Transcribed By: SAMY on 1146 COPY TO: SAAD WILDE MD CXR 2 [facility] 2019-03-19 10:45:00 [place] [address] Patient Name: JUSTINA BRO MR #: [id number] : 1980 Age/Sex: 39/F Req #: [id number] Adm Physician: Ordered by: SAAD WILDE MD Report #: [id number] Location: [facility] Room/Bed: Procedure: HOPD/CXR 2 VIEW - HOPD Exam Date: 03/19/19 E xam Time: 1036 REPORT STATUS: Pratibha d EXAM: PA and lateral views of the chest. COMPARISON: None CLINICA L HISTORY: Chest pain FINDINGS: Lines/tubes: None. Lungs: Faint small cluster of nodules in the right upper lobe are indetermi meenu. Pleura: There is no pleural effusion or pneumothorax. Heart and mediastinum: The cardiomediastinal silhouette is normal. Bones and soft t issues: No acute bony abnormalities. IMPRESSION: Indeterminate few clu ster of densities in small nodules in the right upper lobe, cannot exclude a s mall infection. If clinical concern for pneumonia, consider CT chest without c ontrast for further evaluation. Signed by: Dr. Lashon Frazier M.D. on 03/19/2019 10:47 AM Dictated By: LASHON GUILLORY MD 1047 Trans cribed By: SAMY on 03/19/19 1047 COPY TO: SAAD WILDE MD URINALYSIS [id number] 14:12:00* Test Item Value Reference Range Interpretation Comments UA COLOR (test code = COLU) STRAW YEL/STRAW UA APPEARANCE (test code = APPU) CLEAR CLEAR UA GLUCOSE DIPSTICK (test code = DGLUU) NEGATIVE NEGATIVE UA BILIRUBIN DIPSTICK (test code = BILU) NEGATIVE NEGATIVE UA KETONE DIPSTICK (test code = KETU) NEGATIVE NEGATIVE UA SPECIFIC GRAVITY (test code = SGU) > 1.060 1.005-1.030 H UA BLOOD DIPSTICK (test code = CHADWICK) NEGATIVE NEGATIVE UA PH DIPSTICK (test code = MARYANNE) 6.0 5.0-7.0 N UA PROTEIN DIPSTICK (test code = PROU) NEGATIVE NEGATIVE UA UROBILINIOGEN DIPSTICK (test code = URO) 0.2 mg/dL 0.2-1.0 UA NITRITE DIPSTICK (test code = NICHOL) NEGATIVE NEGATIVE UA LEUKOCYTE ESTERASE DIPSTICK (test code = LEUU) NEGATIVE NEGA TIVE UA WBC (test code = WBCU) 0-3 WBC/HPF 0-3 UA RBC (test code = RBCU) 0-3 RBC/HPF 0-3 UA BACTERIA (test code = BACU) NONE SEEN /HPF NONE SEEN UA SQUAMOUS CELLS (test code = SQU) 0-5 /HPF NONE SEEN - CT ABD PELVIS [id number] 13:06:00 Name: KAREY BRO [facility] : 1980 Age/S: 38 / F [address] [place] [address] Blvd Unit #: [id number] Loc: [place] [address] Phys: Bernard Paiz Acct: [id number] Dis Date: Status: REG ER PHONE #: [phone] Exam Date: 12/29/2018 1237 FAX #: [phone] Reason: Chest pain, abdominal pain, blood in stool EXAMS: CPT CODE: [id number] CT ABD PELVIS W/CONT 87357 PROCEDURE: CTA CHEST CT abdomen and pelvis [...] 1 Signed Report (CONTINUED) Name: KAREY BRO [facility] : 1979 Age/S: 38 / F [address] [place] [address] Blvd Unit #: [id number] Loc: [place] [address] Phys: Bernard Paiz Acct: [id number] Dis Date: Status: REG ER PHONE #: [phone] Exam Date: 12/29/2018 1237 FAX #: [phone] Reason: Chest pain, abdominal pain, blood in stool EXAMS: CPT CODE: [id number] CT ABD PELVIS W/CONT 24903 <Continued> PANCREAS: Normal. ADRENALS: Normal. KIDNEYS: Right [...] scar. 4. Probable right hepatic cyst. SL: [id number] at 1306 Reported and signed by: Shun Rodriguez M.D. CC: Bernard SANDOVAL Technologist:Milton Guidry, RT(R) CTDI: DLP: Trnscb Date/Time: 12/29/2018 (8333) [email or web address] Orig Print D/T: S: 12/29/2018 (7187) PAGE 2 Signed Report - CTA CHEST FOR [id number] 13:06:00 [facility] 1980 Age/S: 38 / F [address] [place] [address] Unit #: [id number] Loc: [place] [address] Phys: Molly Paiz Acct: [id number] Di s Date: Status: REG ER PHONE #: Exam Date: 12/29/2018 1238 FAX #: [phone] Reason: Chest pain, sob, history of multiple VTE EXAMS: CPT CODE: [id number] [place] [address] PROCEDURE: CTA CHEST CT abdomen and pelvis [...] 1 Signed Report (CONTINUED) Name: KAREY BRO [facility] [place] : 1979 Age/S: 38 / F [address] [place] [address] Unit #: [id number] Loc: [place] [address] Phys: Bernard Paiz Acct: [id number] Dis Date: Status: REG ER PHONE #: [phone] Exam Date: 12/29/2018 1236 FAX #: [phone] Reason: Chest pain, sob, history of multiple VTE EXAMS: CPT CODE: [id number] [place] [address] <Continued> PANCREAS: Normal. ADRENALS: Normal. KIDNEYS: Right [...] scar. 4. Probable right hepatic cyst. SL: [id number] at 1306 Reported and signed by: Shun Rodriguez M.D. CC: Bernard SANDOVAL Technologist:RT Afia(R) CTDI: DLP: Trnscb Date/Time: 12/29/2018 (1306) [email or web address] Orig Print D/T: S: 12/29/2018 (1801) PAGE 2 Signed Report COMPREHENSIVE METABOLIC [id number] 11:58:00* Test Item Value Reference Range Interpretation Comments SODIUM (test code = NA) 137 mEq/L 134-147 N POTASSIUM (test code = K) 3.8 mEq/L 3.4-5.0 N CHLORIDE (test code = CL) 107 mEq/L 100-108 N CARBON DIOXIDE (test code = CO2) 27 mEq/L 21-33 N ANION GAP (test code = GAP) 7 0-20 N GLUCOSE (test code = GLU) 86 mg/dL 70-110 N BLOOD UREA NITROGEN (test code = BUN) 7 mg/dL 7-18 N GLOMERULAR FILTRATION RATE (test code = GFR) 113.3 105-110 H Units of measure = ml/min/1.73 m2 CREATININE (test code = CREAT) 0.7 mg/dL 0.6-1.3 N TOTAL PROTEIN (test code = PROT) 8.6 g/dL 6.4-8.2 H ALBUMIN (test code = ALB) 4.10 g/dL 3.4-5.0 N CALCIUM (test code = CA) 8.7 mg/dL 8.0-10.5 N BILIRUBIN TOTAL (test code = BILT) 0.20 mg/dL 0.0-1.0 N SGOT/AST (test code = AST) 14 IUnit/L 15-37 L SGPT/ALT (test code = ALT) 24 IUnit/L 15-65 N ALKALINE PHOSPHATASE TOTAL (test code = ALKP) 59 IUnit/L 20-125 N [id number] 11:58:00* Test Item Value Reference Range Interpretation Comments LIPASE (test code = LIP) 154 IUnit/L 73-393 N [id number] 11:58:00* Test Item Value Reference Range Interpretation Comments TROPONIN-I (test code = TROPI) < 0.015 ng/mL 0.000-0.045 N Negative: <= 0.045 Positive: >= 0.046 Correlation with serial results, other cardiac markers andclinical findings is necessary to determine the clinicalsignificance of this result. Results using different methodologies should not be comparedto one another as quantitative results may vary by method. PROTHROMBIN [id number] 11:55:00* Test Item Value Reference Range Interpretation Comments PROTHROMBIN TIME PATIENT (test code = PTP) 11.9 SECONDS 9.3-12.9 N INTERNATIONAL NORMAL RATIO (test code = INR) 1.1 0.8-1.2 N TARGET INR BY INDICATION Indication INR1. Prophylaxis [...] Infarction (to prevent recurrent infarct). THROMBOPLASTIN TIME [id number] 11:55:00* Test Item Value Reference Range Interpretation Comments THROMBOPLASTIN TIME PARTIAL (test code = PTT) 24.1 Seconds 25.0-39. 5 L Therapeutic Range: 50.4 - 88.3 Seconds Effective 10/19/2018 HCG SERUM [id number] 11:49:00* Test Item Value Reference Range Interpretation Comments HCG SERUM QUAL (test code = HCGQL) SERUM NEGATIVE NEGATIVE CBC W/AUTO [id number] 11:43:00* Test Item Value Reference Range Interpretation Comments WHITE BLOOD CELL (test code = WBC) 4.13 x10 3/uL 4.5-11.0 L RED BLOOD CELL (test code = RBC) 3.78 x10 6/uL 3.54-5.02 N HEMOGLOBIN (test code = HGB) 8.5 g/dL 11.0-15.0 L HEMATOCRIT (test code = HCT) 28.8 % 33.0-45.0 L MEAN CELL VOLUME (test code = MCV) 76.2 fL 81.0-99.0 L MEAN CELL HGB (test code = MCH) 22.5 pg 27.0-33.0 L MEAN CELL HGB CONCETRATION (test code = MCHC) 29.5 g/dL 33.0-37. 0 L RED CELL DISTRIBUTION WIDTH CV (test code = RDW) 16.4 % 11.5- 14.5 H RED CELL DISTRIBUTION WIDTH SD (test code = RDW-SD) 46.0 fL 37 .0-54.0 N PLATELET COUNT (test code = PLT) 430 x10 3/uL 150-400 H MEAN PLATELET VOLUME (test code = MPV) 10.0 fL 7.0-9.0 H NEUTROPHIL % (test code = NT%) 51.8 % 56.0-77.0 L IMMATURE GRANULOCYTE % (test code = IG%) 0.5 % 0.0-2.0 N LYMPHOCYTE % (test code = LY%) 36.1 % 14.0-32.0 H MONOCYTE % (test code = MO%) 9.0 % 4.8-9.0 N EOSINOPHIL % (test code = EO%) 2.4 % 0.3-3.7 N BASOPHIL % (test code = BA%) 0.2 % 0.0-2.0 N NUCLEATED RBC % (test code = NRBC%) 0.0 % 0-0 N NEUTROPHIL # (test code = NT#) 2.14 x10 3/uL 2.0-7.6 N IMMATURE GRANULOCYTE # (test code = IG#) 0.02 x10 3/uL 0.00-0.03 N LYMPHOCYTE # (test code = LY#) 1.49 x10 3/uL 1.0-3.8 N MONOCYTE # (test code = MO#) 0.37 x10 3/uL 0.1-0.8 N EOSINOPHIL # (test code = EO#) 0.10 x10 3/uL 0.0-0.2 N BASOPHIL # (test code = BA#) 0.01 x10 3/uL 0.0-0.2 N NUCLEATED RBC # (test code = NRBC#) 0.00 x10 3/uL 0.0-0.1 N MANUAL DIFF REQUIRED (test code = MDIFF) NO - XR CHEST 1 [id number] 11:21:00 FAX: Bernard Paiz [phone] [place]: St: REG Name: KAREY CARDENAS [facility] : [birth year] Age/S: 38/F [address] [place] [address] Unit #: [id number] Loc: [place] [place] [address] Phys: Bernard Paiz Acct: [id number] Dis Date: Status: REG ER PHONE #: [phone] Exam Date: 12/29/2018 1111 FAX #: [phone] Reason: Chest pain, sob EXAMS: CPT CODE: [id number] XR CHEST 1 V 54651 CHEST 1 VIEW: 12/29/2018 COMPARISON: November 26, [...] By: [email or web address] Orig Print D/T: S: 2018 (1123) PAGE 1 Signed Report
--- OUTSIDE RECORDS SUMMARY | 2019-12-07 02:17 | XMS REPORT | Summary of Care ---
Author Author [facility] - Health Organization [facility] - [facility] Address Unknown Phone Unavailable Care Team Providers Care Assembler Filters Name Role Phone Chase Gil Margie PCP Annalise Lowery MD 37 Encounter Details Care Team Description Date Type Department Doctor Unassigned, [place] [address] [place] [address] 06/08/2019 Orders Only [facility] [address] [place] [address] Allergies Comments Active Allergy Reactions Severity Noted [...] as of this encounter (statuses as of 11/16/2019) Medications End Date Status Medication Sig Dispensed Refills Start Date Active acetaminophen (TYLENOL) Take 325 mg 0 325 mg tablet by mouth every 6 (six) hours as needed for Pain (scale 4-6). Active Mqcp-WD-H37K18-L-Mlovwdo TK 1 T PO BID 60 tablet 5 Sodium (FERRAPLUS 90) 9 80-2-60-120-50 hs-co-noj-mg-mg TabIndications: Iron deficiency anemia secondary to inadequate dietary iron intake, Menorrhagia with regular cycle Active metroNIDAZOLE 0.75 % Insert 1 70 g 0 10/05 vaginal gelIndications: Applicator 9 BV (bacterial vaginosis) into vagina at bedtime. Active Polyethylene Glycol 3350 Take 1 Packet 12 Packet 0 (MIRALAX) 17 gram by mouth 9 powderIndications: every 2 (two) Constipation, unspecified hours as constipation type needed for Constipation for up to 12 doses. Active ondansetron 4 mg Take 1 tablet 10 tablet 0 12/13/ 01 disintegrating by mouth 9 tabletIndications: every 8 Constipation, unspecified (eight) hours constipation type as needed for Nausea and Vomiting (N/V) for up to 10 doses. Active dicyclomine (BENTYL) 20 Take 1 tablet 15 tablet 0 mg tabletIndications: by mouth 3 9 Generalized abdominal (three) times pain daily as needed for Abdominal pain. Active warfarin 5 mg Take 1 tablet 60 tablet 1 tabletIndications: by mouth 9 Hypercoagulable state, every Iron deficiency anemia evening. secondary to inadequate Please follow dietary iron intake up with coumadin clinic to keep INR 2-3. Referral already sent. documented as of this encounter (statuses as of 11/16/2019) Active Problems Problem Noted Date Abdominal pain 05/03/2014 Abdominal pain, other specified site 03/16/2014 Menorrhagia 03/16/2014 History of venous thrombosis and embolism 03/16/2014 Chest wall pain 03/10/2014 Pelvic kidney 11/03/2013 Iron deficiency anemia 11/10/2011 Overview: ICD10 Diagnosis Term Cms Expert Utility Metrorrhagia 07/11/2011 DVT of upper extremity (deep vein thrombosis) 2011 Overview: L arm 06/27/2011 [facility]. Swelling, mass, or lump in head and neck 09/18/2005 Cellulitis and abscess of neck 09/18/2005 documented as of this encounter (statuses as of 11/16/2019) Social History Date Tobacco Use Types Packs/Day [...] filedocumented in this encounter Plan of Treatment Health Maintenance Due Date Last Done Comments DTaP,Tdap,and Td Vaccines 02/26/1991 (1 - Tdap) INFLUENZA VACCINE (#1) 2019 PAP SMEAR 12/03/2021 12/03/2018, 016, 01/02/2011, Additional history exists PNEUMOCOCCAL 0-64 YEARS Aged Out No longer elig ible based COMBINED SERIES on patient's age to complete this topic documented as of this encounter Procedures Comments Procedure Name Priority Date/Time Associated Diag nosis MEDICAL RELEASE/CLEARANCE Routine 06/08/2019 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
[2019-12-07] MEDS ORDERED: PREDNISONE 20 MG TAB PO STA (02:37)
[2019-12-07] MEDS ORDERED: TRIMETHOPRIM/SULFAMETHOXAZOLE 160-800 MG TAB PO STA (02:37)
[2019-12-07] MEDS ORDERED: PREDNISONE20 MG PO (02:43)
[2019-12-07] MEDS ORDERED: BACTRIM DS TAB1 EACH PO (02:43)
[2019-12-07] MEDS ORDERED: PREDNISONE 20 MG TAB ONE (02:45)
[2019-12-07] MEDS ORDERED: TRIMETHOPRIM/SULFAMETHOXAZOLE 160-800 MG TAB ONE (02:45)
--- NOTE | 2019-12-07 03:12 | Emergency Department Note ---
History of Present Illnes History of Present Illness Chief Complaint: painful lump under right arm History of Present Illness This is a 39 year old female. was doing well prior to this. Historian: Patient Arrival Mode: Car History limited by: condition of the patient (normal) Quality Assurance Lead Required: No Onset (how long ago): day(s) (2) Location: rgy axilla Quality: sharp Radiation: non-radiation Severity: moderate Onset quality: gradual Duration (how long): day(s) (2) Timing of current episode: constant Progression: worsening Context: recent illness, recent surgery, recent immobilization, recent travel, trauma/injury, hx of DVT/PE, non-compliance w/ medications Relieving factors: rest Exacerbating factors: movement Associated symptoms: denies other symptoms Treatments prior to arrival: none Past Medical/Family History Physician Review I have reviewed the patient's past medical and family history. Any updates have been documented here. Past Medical History Recent Fever: No Clinical Suspicion of Infectio: No New/Unexplained Change in Ment: No Past Medical History: Anemia, DVT/PE Other Medical History: ANEMIA IBS PE Past Surgical History: Social History Smoking Cessation: Never Smoker Counseling Performed: No Alcohol Use: None Any Illegal Drug Use: No TB Exposure/Symptoms: No Physically hurt or threatened: No Other Last Tetanus: UTD Any Pre-Existing Lines (PICC,: No Is patient up to date on immun: No Last Flu: NO Last Pneumovax: NO Review of Systems Review of Systems Constitutional: no symptoms EENTM: no symptoms Cardiovascular: no symptoms Respiratory: no symptoms Gastrointestinal: no symptoms Genitourinary: no symptoms Musculoskeletal: no symptoms Neurological: no symptoms Psychological: no symptoms Endocrine: no symptoms Hematological/Lymphatic: no symptoms Review of other systems All other systems reviewed and negative. Physical Exam Related Data Allergies: Coded Allergies: diphenhydramine (Verified Allergy, Severe, throat swelling/rash/hives, 03/19/19) meperidine (Verified Allergy, Severe, throat swelling/rash/hives, 03/19/19) morphine (Verified Allergy, Severe, throat swelling/rash/hives, 03/19/19) promethazine (Verified Allergy, Severe, throat swelling/rash/hives, 03/19/19) ciprofloxacin (Verified Allergy, Intermediate, 12/07/19) ketorolac (Verified Allergy, Intermediate, 12/07/19) Triage Vital Signs Vital Signs Date Time Temp Pulse Resp B/P (MAP) Pulse Ox O2 Delivery O2 Flow Rate FiO2 12/07/19 02:18 98.6 92 16 140/82 100 Vital signs reviewed: Yes Physical Exam CONSTITUTIONAL Constitutional: well-developed, well-nourished HENT HENT: normocephalic, atraumatic, oropharynx clear/moist, nose normal HENT L/R: left ext ear normal, right ext ear normal EYES Eyes: PERRL, conjunctivae normal NECK Neck: ROM normal, supple PULMONARY Pulmonary: effort normal, breath sounds normal CARDIOVASCULAR Cardiovascular: regular rhythm, heart sounds normal, capillary refill normal, normal rate GASTROINTESTINAL Abdominal: soft, nontender, bowel sounds normal GENITOURINARY Genitourinary: exam deferred SKIN Skin: warm, dry MUSCULOSKELETAL Musculoskeletal: ROM normal NEUROLOGICAL Neurological: alert, oriented x 3, no gross motor or sensory deficits PSYCHOLOGICAL Psychological: mood/affect normal, judgement normal Exam - additional comments +rgt axilla tender lymphadenopathy. no fluctuance. no cellulitis. no rash Critical Care Time Subsequent provider I assumed direction of critical care for this patient from another provider of my specialty. Assessment & Plan Assessment & Plan Final Impression: (1) ACUTE LYMPHADENITIS, UNSPECIFIED Assessment & Plan rx bactrim and prednisone. f/u pcp Depart Disposition: HOME, SELF-CARE Last Vital Signs Date Time Temp Pulse Resp B/P (MAP) Pulse Ox O2 Delivery O2 Flow Rate FiO2 12/07/19 02:18 98.6 92 16 140/82 100 Home Meds Active Scripts Sulfamethoxazole/Trimethoprim (BACTRIM DS TABLET) 1 Each Tablet, 1 TAB PO Q12H, #20 TAB Prov:DEANGELO SIMS 12/07/19 Prednisone (PREDNISONE) 20 Mg Tab, 60 MG PO DAILY PRN for MODERATE PAIN (4-6), #15 TAB take all 3 pills . start at 11pm Prov:DEANGELO SIMS 12/07/19 Cyclobenzaprine Hcl (CYCLOBENZAPRINE HCL) 10 Mg Tablet, 10 MG PO TID for muscle spasm for 5 Days, #15 TAB Prov:SAAD WILDE MD 03/19/19 Reported Medications Enoxaparin Sodium (LOVENOX) 60 Mg/0.6 Ml Inj, 60 MG SC 1700, #7 SYR 03/19/19 [iron dextra] No Conflict Check 03/19/19 Medications in the ED Prednisone 60 mg ONCE STAT PO Last administered on 12/07/19at 02:41; Admin Dose 60 MG; Start 12/07/19 at 02:37; Stop 12/07/19 at 02:38; Status UNV Trimethoprim/ Sulfamethoxazole 1 ea ONCE STAT PO Last administered on 12/07/19at 02:41; Admin Dose 1 EA; Start 12/07/19 at 02:37; Stop 12/07/19 at 02:38; Status UNV DEANGELO SIMS Dec 07, 2019 03:12
== END 2019-12-07 02:52 | disposition home or self-care (01) ==
LOC: FSED 02:14
DX: L04.2 Acute lymphadenitis of upper limb (principal); D64.9 Anemia, unspecified; Z86.718 Personal history of other venous thrombosis and embolism
CPT/HCPCS: 99283; J7512

== ENCOUNTER 2020-03-02 12:33 | Emergency (ER) | payer OTHER ==
[~2020-03-02] VITALS: Ht 157.5 cm; Wt 64.4 kg
[~2020-03-02 12:33] MED LIST changes: +BACTRIM DS TAB1 EACH PO; +PREDNISONE20 MG PO
--- OUTSIDE RECORDS SUMMARY | 2020-03-02 14:17 | XMS REPORT | Continuity of Care Document ---
Author Author [facility] t Organization [facility] Address [address] [place] [address] Phone Unavailable Care Team Providers Care Electric Meter Reader Name Role Phone NONSTAFF PCP Unavailable Yue BARBOUR, Rp Karyn Attphys Doctor Unassigned, Name No Attphys Unavailable Bethany WILDE Attphys Unavailable Payers Payer Name Policy Type Policy Number Effective Date Expiration Date Rian fagan Aetna Pos [id number] 2018 00:00:00 [facility] Aetna Hmo [id number] 2018 00:00:00 [facility] Problems Condition Name Condition Details Condition Category Status Onset Date Resolution Date Last Treatment Date Treating Clinician Comments Source Problem Condition Active [facility] Allergies, Adverse Reactions, Alerts Allergy Name Allergy Type Status Severity Reaction(s) Onset Date Inacti ve Date Treating Clinician Comments Source Ciprofloxacin Allergy to substance Active Moderate 2019-12-07 00:0 0:[address] [facility] Ketorolac Allergy to substance Active Moderate 2019-12-07 00:00:[address] [facility] No Known Allergies DA Active [place] 2019-09-13 00:00:00 [facility] Morphine Allergy to substance Active Severe throat swelling /rash/hives 2019-03-19 00:00:00 [facility] Promethazine Allergy to substance Active Severe throat swelli ng/rash/hives 2019-03-19 00:00:00 [facility] Meperidine Allergy to substance Active Severe throat swelling /rash/hives 2019-03-19 00:00:00 [facility] Diphenhydramine Allergy to substance Active Severe throat swe lling/rash/hives 2019-03-19 00:00:00 [facility] promethazine HCl DA Active [place] 2014-11-06 00:00:00 [facility] ketorolac tromethamine DA Active [place] 2014-11-06 00:00:00 [facility] iron dextran complex DA Active [place] 2014-11-06 00:00:00 [facility] morphine DA Active [place] 2014-11-06 00:00:00 [facility] codeine DA Active [place] 2014-11-06 00:00:00 [facility] fentanyl DA Active [place] 2014-11-06 00:00:00 [facility] meperidine DA Active [place] 2014-11-06 00:00:00 [facility] diphenhydramine DA Active [place] 2014-11-06 00:00:00 [facility] Social History Social Habit Start Date Stop Date Quantity Comments Source Sex Assigned At 1980 00:00:00 1980 00:00:[address] [facility] Medications Ordered Medication Name Filled Medication Name Start Date Stop Da te Current Medication? Ordering Clinician Indication Dosage Frequency Signature (SIG) Comments Components Source Prednisone Prednisone 2019-12-07 02:43:00 Yes 60 Daily as needed for Moderate Pain (4-6) [facility] Sulfamethoxazole/Trimethoprim (Bactrim Ds Tablet) 1 Ea ch TABLET Sulfamethoxazole/Trimethoprim (Bactrim Ds Tablet) 1 Each TABLET 2019-12-07 02:43:00 Yes 1 Every [address] [facility] Cyclobenzaprine Hcl Cyclobenzaprine Hcl 2019-03-19 11:56:00 Yes 10 Three Times A Day for Muscle Spasm [facility] Enoxaparin Sodium (Lovenox) 60 Mg/0.6 Ml INJ Enoxapari n Sodium (Lovenox) 60 Mg/0.6 Ml INJ Yes 60 Today At 5:00PM [facility] Iron Dextra Iron Dextra Yes C HI [facility] Vital Signs Vital Name Observation Time Observation Value Comments Source Weight 2019-12-07 02:18:00 145 [lb_av] [facility] BMI (Body Mass Index) 2019-12-07 02:18:00 27.4 kg/m2 [facility] Body Temperature 2019-03-19 12:22:00 99.0 [degF] [facility] Procedures This patient has no known procedures. Plan of Care Planned Activity Planned Date Details Comments Source Instructions Lymphadenitis [facility] Encounters Start Date/Time End Date/Time Encounter Type Admission Type Attendi [facility] Care Department Encounter ID Source 2020-01-23 07:54:06 2020-01-23 08:14:06 Telemedicine Visit Karyn Turner [facility] [id number] 2019-12-07 02:14:00 2019-12-07 02:52:00 Departed Emergency Room [facility] [id number] [facility] [place] 2019-06-08 00:00:00 2019-06-08 00:00:00 Orders Only D catherine Unassigned, [place] [facility] [id number] 2019-05-01 06:55:00 2019-05-01 07:41:00 Departed Emergency Room [facility] [id number] [facility] 2019-03-23 00:00:00 2019-03-23 00:00:00 Telephone Kiersten Turner [facility] [id number] 2019-03-19 09:11:00 2019-03-19 12:18:00 Departed Emergency Room 1 SAAD WILDE [facility] [id number] I [facility] 2019-03-18 00:00:00 2019-03-18 00:00:00 Telephone Kiersten Turner [facility] [id number] 2019-03-15 00:00:00 2019-03-15 00:00:00 Telephone Kiersten Turner [facility] [id number] 2018-12-13 03:50:00 2018-12-13 03:50:00 Emergency E [id number] Results Test Description Test Time Test Comments Results Result Comments Source - XR CHEST 1 V 2019-09-13 14:48:00 [place]: St: REG -- Name: JUSTINA BRO [facility] [place] : 1980 Age/S: 39/F [address] [place] [address] Unit #: [id number] Loc: [place] [address] Phys: Elder Shetty MD Acct: [id number] Dis Date: Status: REG ER PHONE #: [phone] Exam Date: 09/13/20191446 FAX #: [phone] Reason: Abdominal Pain EXAMS: CPT CODE: [id number] XR CHEST 1 V 40650 PROCEDURE: Chest, AP on 09/13/2019 at 1443 hours. INDICATION: Abdominal Pain. Difficulty breathing. COMPARISON: None. FINDINGS: Support tubes, catheters, devices: None. There are no visualized pleural effusions. The visualized portions of the lungs are clear with normal pulmonary vasculature. The mediastinal silhouette and jacqui appear normal. No evidence for an acute bony abnormality. IMPRESSION: 1. No evidence for an acute cardiopulmonary process. SL: [id number] at 1448 Reported and signed by: Karthikeyan Alvarez M.D. CC: Technologist: JEY Ponce) Trnscrd Date/Time/By: 09/13/2019 (6894) : By: [email or web address] Orig Print D/T: S: 09/13/2019 (4881) PAGE 1 Signed Report BASIC METABOLIC PANEL [...] CA) 9.0 mg/dL 8.0-10.5 N HEPATIC FUNCTION [id number] 14:37:00* Test Item Value Reference Range Interpretation [...] code = ALKP) 57 IUnit/L 20-125 N [id number] 14:37:00* Test Item Value Reference Range Interpretation Comments LIPASE (test code = LIP) 198 IUnit/L 73-393 N URINALYSIS [id number] 14:34:00* Test Item Value Reference Range Interpretation [...] MUCU) TRACE /LPF NONE SEEN BASIC METABOLIC [id number] 14:32:00* Test Item Value Reference Range Interpretation [...] CA) 9.0 mg/dL 8.0-10.5 N HEPATIC FUNCTION [id number] 14:32:00* Test Item Value Reference Range Interpretation Comments TOTAL PROTEIN (test code = PROT) g/dL 6.4-8.2 ALBUMIN (test code = ALB) g/dL 3.4-5.0 BILIRUBIN TOTAL (test code = BILT) MG/DL <1.5 BILIRUBIN DIRECT (test code = BILD) MG/DL 0.0-0.30 SGOT/AST (test code = AST) IUnit/L 15-37 SGPT/ALT (test code = ALT) IUnit/L 15-65 ALKALINE PHOSPHATASE TOTAL (test code = ALKP) IUnit/L 20-125 [id number] 14:32:00* Test Item Value Reference Range Interpretation Comments LIPASE (test code = LIP) 198 IUnit/L 73-393 N CBC W/AUTO [id number] 14:15:00* Test Item Value Reference Range Interpretation [...] code = MDIFF) NO US EXREMEITY VEINS [id number] 11:44:00 [place] [address] Patient Name: JUSTINA BRO MR #: [id number] : 1980 Age/Sex: 39/F Req #: [id number] [facility] Physician: Ordered by: SAAD WILDE MD Report #: [id number] Location: [facility] Room/Bed: Procedure: HOPD/US [facility]REMEITY [facility]INS [facility] Exam Date: 03/19/19 Exam Time: 1138 [...] COPY TO: SAAD WILDE MD CXR 2 [facility]OPD 2019-03-19 10:45:00 [place] [address] Patient Name: JUSTINA BRO MR #: [id number] : 1980 Age/Sex: 39/F Req #: [id number] Adm Physician: Ordered by: SAAD WILDE MD Report #: [id number] Location: [facility] Room/Bed: Procedure: HOPD/CXR 2 VIEW - HOPD [...] 1047 COPY TO: SAAD WILDE MD URINALYSIS [id number] 14:12:00* Test Item Value Reference Range Interpretation [...] /HPF NONE SEEN - CT ABD PELVIS [id number] 13:06:00 Name: KAREY BRO [facility] : 1980 Age/S: 38 / F [address] [place], [place] [address] Unit #: [id number] Loc: [place] [address] Phys: Bernard Paiz Acct: [id number] Dis Date: Status: REG ER PHONE #: [phone] Exam Date: 12/29/2018 1237 FAX #: [phone] Reason: Chest pain, abdominal pain, blood in stool EXAMS: CPT CODE: [id number] CT ABD PELVIS W/CONT 41291 PROCEDURE: CTA CHEST CT abdomen and pelvis [...] more of the following: -Automated exposure control - Adjustment of the mA and/or kV according to [...] 1 Signed Report (CONTINUED) Name: KAREY BRO [facility] : 1979 Age/S: 38 / F [address] [place] [address] Unit #: [id number] Loc: [place] [address] Phys: Bernard Paiz Acct: [id number] Dis Date: Status: REG ER PHONE #: Exam Date: 12/29/2018 1237 FAX #: [phone] Reason: Chest pain, abdominal pain, blood in stool EXAMS: CPT CODE: [id number] CT ABD PELVIS W/CONT 90300 <Continued> PANCREAS: Normal. ADRENALS: Normal. KIDNEYS: Right [...] scar. 4. Probable right hepatic cyst. SL: [id number] at 1306 Reported and signed by: Shun Rodriguez M.D. CC: Bernard SANDOVAL Technologist:Milton Guidry, RT(R) CTDI: DLP: Trnscb Date/Time: 12/29/2018 (1306) [email or web address] Orig Print D/T: S: 12/29/2018 (3275) PAGE 2 Signed Report - CTA CHEST FOR [id number] 13:06:00 [facility] 1980 Age/S: 38 / F [address] [facility] Unit #: [id number] Loc: [place] [address] Phys: Molly Paiz Acct: [id number] Di s Date: Status: REG ER PHONE #: Exam Date: 12/29/2018 123 FAX #: Reason: Chest pain, sob, history of multiple VTE EXAMS: CPT CODE: [id number] [place] [address] PROCEDURE: CTA CHEST CT abdomen and pelvis [...] measures 9 mm. GALLBLADDER: Normal. SPLEEN: Normal. PAG E 1 Signed Report (CONTINUED) Name: [facility] : 1979 Age/S: 38 / F [address] [place] [address] Unit #: [id number] Loc: [place] [address] Phys: Bernard Paiz Acct: [id number] Dis Date: Status: REG ER PHONE #: Exam Date: 12/29/2018 1236 FAX #: [phone] Reason: Chest pain, sob, history of multiple VTE EXAMS: CPT CODE: [id number] [place] [address] <Continued> PANCREAS: Normal. ADRENALS: Normal. KIDNEYS: Right [...] scar. 4. Probable right hepatic cyst. SL: [id number] at 1306 Reported and signed by: Shun Rodriguez M.D. CC: Bernard SANDOVAL Technologist:Milton Guidry, RT(R) CTDI: DLP: Trnscb Date/Time: 12/29/2018 (1306) [email or web address] Orig Print D/T: S: 12/29/2018 (3444) PAGE 2 Signed Report COMPREHENSIVE METABOLIC [id number] 11:58:00 * Test Item Value Reference Range Interpretation Comments [...] code = ALKP) 59 IUnit/L 20-125 N [id number] 11:58:00* Test Item Value Reference Range Interpretation Comments LIPASE (test code = LIP) 154 IUnit/L 73-393 N [id number] 11:58:00* Test Item Value Reference Range Interpretation Comments TROPONIN-I (test code = TROPI) < 0.015 ng/mL 0.000-0.045 N Negative: <= 0.045 Positive: >= 0.046 Correlation with serial results, other cardiac markers andclinical findings is necessary to determine the clinicalsignificance of this result. Results using different methodologies should not be comparedto one another as quantitative results may vary by method. PROTHROMBIN [id number] 11:55:00* Test Item Value Reference Range Interpretation [...] Infarction (to prevent recurrent infarct). THROMBOPLASTIN TIME [id number] 11:55:00* Test Item Value Reference Range Interpretation Comments THROMBOPLASTIN TIME PARTIAL (test code = PTT) 24.1 Seconds 25.0-39. 5 L Therapeutic Range: 50.4 - 88.3 Seconds Effective 10/19/2018 HCG SERUM [id number] 11:49:00* Test Item Value Reference Range Interpretation Comments HCG SERUM QUAL (test code = HCGQL) SERUM NEGATIVE NEGATIVE CBC W/AUTO [id number] 11:43:00* Test Item Value Reference Range Interpretation [...] = MDIFF) NO - XR CHEST 1 [id number] 11:21:00 FAX: Bernard Paiz [phone] [place]: St: REG Name: KAREY CARDENAS [facility] : [birth year] Age/S: 38/F [address] [place] [address] Unit #: [id number] Loc: [address] [place] [address] Phys: Bernard Paiz Acct: [id number] Dis Date: Status: REG ER PHONE #: [phone] Exam Date: 12/29/2018 1111 FAX #: [phone] Reason: Chest pain, sob EXAMS: CPT CODE: [id number] XR CHEST 1 V 19977 CHEST 1 VIEW: 12/29/2018 COMPARISON: November 26, 2014 CLINICAL HISTORY: Chest pain, sob FINDINGS: The cardiovascular silhouette is normal in size. No infiltrates or pulmonary edema is present. No pleural eff usions are seen. IMPRESSION: No acute pulmona ry disease. at 1121 Reported and signed by: Mauro Ziegler M.D. CC: Bernard SANDOVAL Technologist: RT Jose(Bethany) Trnscrd Benja e/Time/By: 12/29/2018 (1121) : By: [email or web address] Orig Print D/T: S: 2018 (1122) PAGE 1 Signed Report
[2020-03-02] MEDS ORDERED: LIDOCAINE VISC 2% SOLN 15 ML UDC ONE (14:20)
--- NOTE | 2020-03-02 14:27 | NUR ---
pt came to door stating she was having reaction to viscous lido. ptvomiting and feeling flush, Dr Carolina at bedside. pt given water to rinse out mouth. pt fanned and feeling better. lidocaine added to allergies, pt also placed on monitor. BF at bedside
--- NOTE | 2020-03-02 14:30 | NUR ---
[address]sted Dr Carolina in remving lip ring. pt tolorated well. no bleeding noted. able to remove without opening area.
[2020-03-02] MEDS ORDERED: LIDOCAINE VISC 2% SOLN 15 ML UDC PO ONE (14:45)
[2020-03-02] MEDS ORDERED: ONDANSETRON HCL 4 MG ORAL DISINTEGRATING TAB PO PRN (14:45)
[2020-03-02] MEDS ORDERED: BACTRIM DS TAB1 EACH PO (14:57)
--- NOTE | 2020-03-02 18:25 | Emergency Department Note ---
History of Present Illnes History of Present Illness Chief Complaint: General Medicine Complaints History of Present Illness This is a 40 year old female who presents unable to get a lip ring out. Lip ring is on left upper lip. She states that yesterday the base of the lip ring (inside aspect of lip) disappeared inside of her lip. The screw on the external side of lip is still in place. She denies pain. She's had swelling in the area. Scant discharge from inside of lip. No fever or chills. 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 Any updates have been documented here. Past Medical History Recent Fever: No Clinical Suspicion of Infectio: No New/Unexplained Change in Ment: No Past Medical History: Anemia, DVT/PE Other Medical History: ANEMIA IBS PE Past Surgical History: Social History Smoking Cessation: Never Smoker Counseling Performed: No Alcohol Use: Occasional Any Illegal Drug Use: No Physically hurt or threatened: No Other Last Tetanus: UTD Any Pre-Existing Lines (PICC,: Yes Review of Systems Review of Systems Constitutional: Reports no symptoms EENTM: Reports as per HPI Cardiovascular: Reports no symptoms Respiratory: Reports no symptoms Gastrointestinal: Reports no symptoms Genitourinary: Reports no symptoms Musculoskeletal: Reports no symptoms Integumentary: Denies rash Neurological: Reports no symptoms Psychological: Reports no symptoms Hematological/Lymphatic: Reports no symptoms Physical Exam Related Data Allergies: Coded Allergies: diphenhydramine (Verified Allergy, Severe, throat swelling/rash/hives, 03/19/19) meperidine (Verified Allergy, Severe, throat swelling/rash/hives, 03/19/19) morphine (Verified Allergy, Severe, throat swelling/rash/hives, 03/19/19) promethazine (Verified Allergy, Severe, throat swelling/rash/hives, 03/19/19) ciprofloxacin (Verified Allergy, Intermediate, 12/07/19) ketorolac (Verified Allergy, Intermediate, 12/07/19) Triage Vital Signs Vital Signs Date Time Temp Pulse Resp B/P (MAP) Pulse Ox O2 Delivery O2 Flow Rate FiO2 8/28/20 12:40 98.2 71 18 124/63 100 Physical Exam CONSTITUTIONAL Constitutional: Present well-developed HENT HENT: Present normocephalic, Present other (Lip ring in place on external surface. Base of lip ring not present on interior surface of lip, but palpated on interal side of lip. Hole on interior surface of lip from lip ring with scant purulent material.) HENT L/R: Present left ext ear normal, Present right ext ear normal EYES Eyes: Reports PERRL, Reports conjunctivae normal NECK Neck: Present ROM normal PULMONARY Pulmonary: Present effort normal, Present breath sounds normal CARDIOVASCULAR Cardiovascular: Present regular rhythm, Present heart sounds normal, Present capillary refill normal, Present normal rate GASTROINTESTINAL Abdominal: Present soft, Present nontender, Present bowel sounds normal GENITOURINARY Genitourinary: Present exam deferred SKIN Skin: Absent erythema MUSCULOSKELETAL Musculoskeletal: Present ROM normal NEUROLOGICAL Neurological: Present alert, Present oriented x 3, Present no gross motor or sensory deficits PSYCHOLOGICAL Psychological: Present mood/affect normal Procedures Foreign Body Time out performed: Yes Site: left, face (lip) Description: sex toy (lip ring) Sedation/analgesia: other (viscous lidocaine) Technique: manual removal (pushed base through hole on interior surface of lip and grasped with hemostat. Screw removed on exteral surface on top of lip ring and ring pulled through hole on interior surface of lip. tolerated well, no complications.) Confirmed by: direct visualization Complications: none Post procedure exame: awake, alert Assessment & Plan Medical Decision Making MDM Patient with FB from lip ring removed in ED. Patient has residual infection, do not need to drain as wound is open from lip ring pathway. Gave antibiotic and to have follow up for wound check. Reassessment Reassessment Patient had N/V and rash after viscous lidocaine. Viscous lidocaine removed and patient wrinsed. mouth and symptoms resolved after 5 min. Declined zofran. No allergic reaction symptoms at d/c. Assessment & Plan Final Impression: (1) Foreign body (FB) in soft tissue (2) Soft tissue abscess Depart Disposition: HOME, SELF-CARE Last Vital Signs Date Time Temp Pulse Resp B/P (MAP) Pulse Ox O2 Delivery O2 Flow Rate FiO2 03/02/20 15:46 71 18 98 03/02/20 12:40 98.2 124/63 Home Meds Active Scripts Sulfamethoxazole/Trimethoprim (BACTRIM DS TABLET) 1 Each Tablet, 2 TAB PO BID, #20 TAB Prov:TYLER QURESHI MD 03/02/20 Sulfamethoxazole/Trimethoprim (BACTRIM DS TABLET) 1 Each Tablet, 1 TAB PO Q12H, #20 TAB Prov:DEANGELO SIMS 12/07/19 Prednisone (PREDNISONE) 20 Mg Tab, 60 MG PO DAILY PRN for MODERATE PAIN (4-6), #15 TAB take all 3 pills . start at 11pm Prov:ALEKSEY SIMSRamya PAREDES 12/07/19 Cyclobenzaprine Hcl (CYCLOBENZAPRINE HCL) 10 Mg Tablet, 10 MG PO TID for muscle spasm for 5 Days, #15 TAB Prov:SAAD WILDE MD 03/19/19 Reported Medications Enoxaparin Sodium (LOVENOX) 60 Mg/0.6 Ml Inj, 60 MG SC 1700, #7 SYR 03/19/19 [iron dextra] No Conflict Check 03/19/19 Medications in the ED Lidocaine HCl 15 ml STK-MED ONCE .ROUTE ; Start 03/02/20 at 14:20; Stop 03/02/20 at 14:14; Status DC Lidocaine HCl ONCE ONCE PO Last administered on 03/02/20at 14:20; Admin Dose 1 ML; Start 03/02/20 at 14:45; Stop 03/02/20 at 14:52; Status DC Ondansetron HCl 4 mg Q6H PRN PO NAUSEA AND VOMITING; Start 03/02/20 at 14:45; Stop 03/02/20 at 15:49; Status DC TYLER QURESHI MD Mar 02, 2020 18:08
== END 2020-03-02 15:03 | disposition home or self-care (01) ==
LOC: FSED 14:00
DX: L02.01 Cutaneous abscess of face (principal); S00.551A Superficial foreign body of lip, initial encounter; D64.9 Anemia, unspecified; Z86.711 Personal history of pulmonary embolism
CPT/HCPCS: 99282; Q0162

== ENCOUNTER 2020-04-01 11:21 | Emergency (ER) | payer OTHER ==
[~2020-04-01] VITALS: Ht 157.5 cm; Wt 64.4 kg
[2020-04-01] MEDS ORDERED: IBUPROFEN 600 MG TAB PO STA (11:36)
[2020-04-01] MEDS ORDERED: IBUPROFEN 400 MG TAB ONE (11:46)
[2020-04-01] MEDS ORDERED: IBUPROFEN 400 MG TAB PO STA (11:53)
--- NOTE | 2020-04-01 12:12 | Diagnostic Imaging Report ---
Exam: Left hand radiographs-3 views History: Pain at thumb MCP joint. Comparison: None. Findings: No evidence of acute fracture or malalignment. Mild soft tissue edema at the thenar eminence. There is a 4 mm sclerotic area in the distal aspect of the ring finger proximal phalanx without periosteal reaction or bony destructive changes. Impression: No acute osseous abnormality. Mild soft tissue edema at the thenar eminence. Nonaggressive appearing 4 mm sclerotic area in the ring finger proximal phalanx may represent a fibro-osseous lesion. Signed by: Dr. Manva Wilde MD on 04/01/2020 12:08 PM
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
--- OUTSIDE RECORDS SUMMARY | 2020-04-01 16:52 | XMS REPORT | Continuity of Care Document ---
Author Author [facility] t Organization [facility] Address [address] [place] [address] Phone Unavailable Care Team Providers Care Microwave Technician Name Role Phone NONSTAFF PCP Unavailable Alyssia QURESHI Attphys Unavailable Yue BARBOUR, Rp Karyn Attphys Doctor Unassigned, Name No Attphys Unavailable Bethany WILDE Attphys Unavailable Payers Payer Name Policy Type Policy Number Effective Date Expiration Date Rian fagan Aetna Pos [id number] 2018 00:00:00 [facility] Aetna o [id number] 2018 00:00:00 [facility] Problems Condition Name Condition Details Condition Category Status Onset Date Resolution Date Last Treatment Date Treating Clinician Comments Source Foreign body in soft tissue Problem Active [facility] Soft tissue abscess Problem Active [facility] Contusion of left hand Problem Active [facility] Sprain of left thumb Problem Active [facility] Allergies, Adverse Reactions, Alerts Allergy Name Allergy Type Status Severity Reaction(s) Onset Date Inacti ve Date Treating Clinician Comments Source Ciprofloxacin Allergy to substance Active Moderate 2019-12-07 00:0 0:00 [facility] Ketorolac Allergy to substance Active Moderate 2019-12-07 00:00:00 [facility] No Known Allergies DA Active U 2019-09-13 00:00:00 [facility] Morphine Allergy to substance Active Severe throat swelling /rash/hives 2019-03-19 00:00:00 [facility] Promethazine Allergy to substance Active Severe throat swelli ng/rash/hives 2019-03-19 00:00:00 [facility] Meperidine Allergy to substance Active Severe throat swelling /rash/hives 2019-03-19 00:00:00 [facility] Diphenhydramine Allergy to substance Active Severe throat swe lling/rash/hives 2019-03-19 00:00:00 [facility] promethazine HCl DA Active HI 2014-11-06 00:00:00 [facility] ketorolac tromethamine DA Active U 2014-11-06 00:00:00 [facility] iron dextran complex DA Active SV 2014-11-06 00:00:00 [facility] morphine DA Active U 2014-11-06 00:00:00 [facility] codeine DA Active SV 2014-11-06 00:00:00 [facility] fentanyl DA Active U 2014-11-06 00:00:00 [facility] meperidine DA Active U 2014-11-06 00:00:00 [facility] diphenhydramine DA Active U 2014-11-06 00:00:00 [facility] Social History Social Habit Start Date Stop Date Quantity Comments Source Sex Assigned At 1980 00:00:00 1980 00:00:00 Female [facility] Medications Ordered Medication Name Filled Medication Name Start Date Stop Da te Current Medication? Ordering Clinician Indication Dosage Frequency Signature (SIG) Comments Components Source Sulfamethoxazole/Trimethoprim (Bactrim Ds Tablet) 1 Ea ch TABLET Sulfamethoxazole/Trimethoprim (Bactrim Ds Tablet) 1 Each TABLET 2020-03-02 14:57:00 Yes 2 Twice A Day [facility] Prednisone Prednisone 2019-12-07 02:43:00 Yes 60 Daily as needed for Moderate Pain (4-6) [facility] Sulfamethoxazole/Trimethoprim (Bactrim Ds Tablet) 1 Ea ch TABLET Sulfamethoxazole/Trimethoprim (Bactrim Ds Tablet) 1 Each TABLET 2019-12-07 02:43:00 Yes 1 Every 12 Hours [facility] Cyclobenzaprine Hcl Cyclobenzaprine Hcl 2019-03-19 11:56:00 Yes 10 Three Times A Day for Muscle Spasm [facility] Enoxaparin Sodium (Lovenox) 60 Mg/0.6 Ml INJ Enoxapari n Sodium (Lovenox) 60 Mg/0.6 Ml INJ Yes 60 Today At 5:00PM [facility] Iron Dextra Iron Dextra Yes C [facility] Vital Signs Vital Name Observation Time Observation Value Comments Source Weight 2020-04-01 11:32:00 142 [lb_av] [facility] BMI (Body Mass Index) 2020-04-01 11:32:00 26.0 kg/m2 [facility] Weight 2020-03-02 12:40:00 142 [lb_av] [facility] BMI (Body Mass Index) 2020-03-02 12:40:00 26.0 kg/m2 [facility] Weight 2019-12-07 02:18:00 145 [lb_av] [facility] BMI (Body Mass Index) 2019-12-07 02:18:00 27.4 kg/m2 [facility] Body Temperature 2019-03-19 12:22:00 99.0 [degF] [facility] Procedures This patient has no known procedures. Plan of Care Planned Activity Planned Date Details Comments Source Instructions Sprains- Finger [facility] Instructions Splint/Cast Care [facility]. Amy es - Patients [facility] Encounters Start Date/Time End Date/Time Encounter Type Admission Type Att[facility] Care Department Encounter ID Source 2020-04-01 11:38:00 2020-04-01 12:58:00 Departed Emergency Room 1 TYLER QURESHI [facility] [id number] [facility]. Grisel kes - Patients [facility] 2020-03-02 14:00:00 2020-03-02 15:03:00 Departed Emergency Room [facility] [id number] [facility]. [facility] 2020-01-23 07:54:06 2020-01-23 08:14:06 Telemedicine Visit Karyn Turner [place] [id number] 2019-12-07 02:14:00 2019-12-07 02:52:00 Departed Emergency Room [facility] [id number] [facility]. [facility] - Patients [facility] 2019-06-08 00:00:00 2019-06-08 00:00:00 Orders Only D catherine Unassigned, [place] [facility] [id number] 2019-05-01 06:55:00 2019-05-01 07:41:00 Departed Emergency Room [facility] [id number] [facility] 2019-03-23 00:00:00 2019-03-23 00:00:00 Telephone Kiersten Turner [facility] [id number] 2019-03-19 09:11:00 2019-03-19 12:18:00 Departed Emergency Room 1 SAAD WILDE [facility] [id number] DAGOBERTO Best [facility] 2019-03-18 00:00:00 2019-03-18 00:00:00 Telephone Kiersten Turner [facility] [id number] 2019-03-15 00:00:00 2019-03-15 00:00:00 Telephone Yue Kiersten daniel [facility] [id number] 2018-12-13 03:50:00 2018-12-13 03:50:00 Emergency E [facility] Results Test Description Test Time Test Comments Results Result Comments Source [facility] 2020-04-01 12:01:00 [facility] [address] [place] [address] Patient Name: JUSTINA BRO MR #: [id number] : 1980 Age/Sex: 40/F Req #: [id number] Adm Physician: Ordered by: TYLER QURESHI MD Report #: [id number] Location: [facility] Room/Bed: Procedure: [id number] HOPD/HAND 3 VIEW LT - HOPD Exam Date: 04/01/20 Exam Time: 1153 REPORT STATUS: Signed Exam: Left hand radiographs-3 views History: Pain at thumb MCP joint. Comparison: None. Findings: No evidence of acute fracture or malalignment. Mild soft tissue edema at the thenar eminence. There is a 4 mm sclerotic area in the distal aspect of the ring finger proximal phalanx without periosteal reaction or bony destructive changes. Impression: No acute osseous abnormality. Mild soft tissue edema at the thenar eminence. Nonaggressive appearing 4 mm sclerotic area in the ring finger proximal phalanx may represent a fibro- osseous lesion. Signed by: Dr. Chilo Barba MD on 04/01/2020 12:08 PM Dictated By: CHILO BARBA MD 07 Transcribed By: SAMY on 04/01/201207 COPY TO: TYLER QURESHI MD - XR CHEST 1 V 2019-09-13 14:48:00 Majestic: St: REG -- Name: JUSTINA BRO [facility] : 1980 Age/S: 39/F [address] [place] [address] Unit #: [id number] Loc: [place] [address] Phys: Elder Shetty MD Acct: [id number] Dis Date: Status: REG ER PHONE #: [phone] Exam Date: 09/13/20191446 FAX #: [phone] Reason: Abdominal Pain EXAMS: CPT CODE: [id number] XR CHEST 1 V 68298 PROCEDURE: Chest, AP on 09/13/2019 at 1443 hours. INDICATION: Abdominal Pain. Difficulty breathing. COMPARISON: None. FINDINGS: Support tubes, catheters, devices: None. There are no visualized pleural effusions. The visualized portions of the lungs are clear with normal pulmonary vasculature. The mediastinal silhouette and jacqui appear normal. No evidence for an acute bony abnormality. IMPRESSION: 1. No evidence for an acute cardiopulmonary process. SL: [id number] at 1448 Reported and signed by: Karthikeyan Alvarez M.D. CC: Technologist: RT Kris(R) Trnscrd Date/Time/By: 09/13/2019 (9364) : By: [email or web address] Orig Print D/T: S: 09/13/2019 (3391) PAGE 1 Signed Report BASIC METABOLIC PANEL [...] CA) 9.0 mg/dL 8.0-10.5 N HEPATIC FUNCTION [id number] 14:37:00* Test Item Value Reference Range Interpretation [...] code = ALKP) 57 IUnit/L 20-125 N [id number] 14:37:00* Test Item Value Reference Range Interpretation Comments LIPASE (test code = LIP) 198 IUnit/L 73-393 N URINALYSIS [id number] 14:34:00* Test Item Value Reference Range Interpretation [...] MUCU) TRACE /LPF NONE SEEN BASIC METABOLIC [id number] 14:32:00* Test Item Value Reference Range Interpretation [...] CA) 9.0 mg/dL 8.0-10.5 N HEPATIC FUNCTION [id number] 14:32:00* Test Item Value Reference Range Interpretation Comments TOTAL PROTEIN (test code = PROT) g/dL 6.4-8.2 ALBUMIN (test code = ALB) g/dL 3.4-5.0 BILIRUBIN TOTAL (test code = BILT) MG/DL <1.5 BILIRUBIN DIRECT (test code = BILD) MG/DL 0.0-0.30 SGOT/AST (test code = AST) IUnit/L 15-37 SGPT/ALT (test code = ALT) IUnit/L 15-65 ALKALINE PHOSPHATASE TOTAL (test code = ALKP) IUnit/L 20-125 [id number] 14:32:00* Test Item Value Reference Range Interpretation Comments LIPASE (test code = LIP) 198 IUnit/L 73-393 N CBC W/AUTO [id number] 14:15:00* Test Item Value Reference Range Interpretation [...] code = MDIFF) NO US EXREMEITY VEINS [id number] 11:44:00 [place] [address] Patient Name: JUSTINA BRO MR #: [id number] : 1980 Age/Sex: 39/F Req #: [id number] Adm Physician: Ordered by: SAAD WILDE MD Report #: [id number] Location: [facility] Room/Bed: Procedure: HOPD/US EXREMEITY VEINS UNI-HOPD Exam Date: 03/19/19 Exam Time: 1138 REPORT [...] COPY TO: SAAD WILDE MD CXR 2 VIEW - HOPD 2019-03-19 10:45:00 [place] [address] Patient Name: JUSTINA BRO MR #: [id number] : 1980 Age/Sex: 39/F Req #: [id number] Adm Physician: Ordered by: SAAD WILDE MD Report #: [id number] Location: [facility] Room/Bed: Procedure: HOPD/CXR 2 VIEW - HOPD [...] 1047 COPY TO: SAAD WILDE MD URINALYSIS [id number] 14:12:00* Test Item Value Reference Range Interpretation [...] /HPF NONE SEEN - CT ABD PELVIS [id number] 13:06:00 Name: KAREY BRO [place] : 1980 Age/S: 38 / F [address] [place] [address] Unit #: [id number] Loc: [place] [address] Phys: Bernard Paiz JAIME Acct: [id number] Dis Date: Status: REG ER PHONE #: [phone] Exam Date: 12/29/2018 1237 FAX #: [phone] Reason: Chest pain, abdominal pain, blood in stool EXAMS: CPT CODE: [id number] CT ABD PELVIS W/CONT 20723 PROCEDURE: CTA CHEST CT abdomen and pelvis [...] 1 Signed Report (CONTINUED) Name: KAREY BRO : 1979 Age/S: 38 / F [address] [place] [address] Unit #: [id number] Loc: [place] [address] Phys: Bernard Paiz JAIME Acct: [id number] Dis Date: Status: REG ER PHONE #: Exam Date: 12/29/2018 1237 FAX #: [phone] Reason: Chest pain, abdominal pain, blood in stool EXAMS: CPT CODE: [id number] CT ABD PELVIS W/CONT 80455 <Continued> PANCREAS: Normal. ADRENALS: Normal. KIDNEYS: Right [...] scar. 4. Probable right hepatic cyst. SL: [id number] at 1306 Reported and signed by: Shun Rodriguez M.D. CC: Bernard SANDOVAL Technologist:RT Afia(R) CTDI: DLP: Trnscb Date/Time: 12/29/2018 (6756) [email or web address] Orig Print D/T: S: 12/29/2018 (0452) PAGE 2 Signed Report - CTA CHEST FOR [id number] 13:06:00 Name: KAREY BRO [facility] : 1980 Age/S: 38 / F [address] [place] [address] Unit #: [id number] Loc: [place] [address] Phys: Molly Paiz Acct: [id number] Di s Date: Status: REG ER PHONE #: [phone] Exam Date: 12/29/2018 1230 FAX #: Reason: Chest pain, sob, history of multiple VTE EXAMS: CPT CODE: [id number] [place] [address] PROCEDURE: CTA CHEST CT abdomen and pelvis [...] E 1 Signed Report (CONTINUED) Name: KAREY RBO [facility] : 1979 Age/S: 38 / F [address] [place] [address] Unit #: [id number] Loc: [place] [address] Phys: Bernard Paiz Acct: [id number] Dis Date: Status: REG ER PHONE #: [phone] Exam Date: 12/29/2018 1236 FAX #: [phone] Reason: Chest pain, sob, history of multiple VTE EXAMS: CPT CODE: [id number] [place] [address] <Continued> PANCREAS: Normal. ADRENALS: Normal. KIDNEYS: Right [...] scar. 4. Probable right hepatic cyst. SL: [id number] at 1306 Reported and signed by: Shun Rodriguez M.D. CC: Bernard SANDOVAL Technologist:Milton Guidry RT(R) CTDI: DLP: Trnscb Date/Time: 12/29/2018 (6383) [email or web address] Orig Print D/T: S: 12/29/2018 (1115) PAGE 2 Signed Report COMPREHENSIVE METABOLIC [id number] 11:58:00 * Test Item Value Reference Range [...] code = ALKP) 59 IUnit/L 20-125 N [id number] 11:58:00* Test Item Value Reference Range Interpretation Comments LIPASE (test code = LIP) 154 IUnit/L 73-393 N [id number] 11:58:00* Test Item Value Reference Range Interpretation Comments TROPONIN-I (test code = TROPI) < 0.015 ng/mL 0.000-0.045 N Negative: <= 0.045 Positive: >= 0.046 Correlation with serial results, other cardiac markers andclinical findings is necessary to determine the clinicalsignificance of this result. Results using different methodologies should not be comparedto one another as quantitative results may vary by method. PROTHROMBIN [id number] 11:55:00* Test Item Value Reference Range Interpretation [...] Infarction (to prevent recurrent infarct). THROMBOPLASTIN TIME [id number] 11:55:00* Test Item Value Reference Range Interpretation Comments THROMBOPLASTIN TIME PARTIAL (test code = PTT) 24.1 Seconds 25.0-39. 5 L Therapeutic Range: 50.4 - 88.3 Seconds Effective 10/19/2018 HCG SERUM [id number] 11:49:00* Test Item Value Reference Range Interpretation Comments HCG SERUM QUAL (test code = HCGQL) SERUM NEGATIVE NEGATIVE CBC W/AUTO [id number] 11:43:00* Test Item Value Reference Range Interpretation [...] = MDIFF) NO - XR CHEST 1 [id number] 11:21:00 FAX: Bernard Paiz [phone] Majestic: St: REG Name: KAREY CARDENAS [facility] : [birth year] Age/S: 38/F [address] [place] [address] Unit #: [id number] Loc: [facility] [place] [address] Phys: Bernard Paiz Acct: [id number] Dis Date: Status: REG ER PHONE #: [phone] Exam Date: 12/29/2018 1111 FAX #: [phone] Reason: Chest pain, sob EXAMS: CPT CODE: [id number] XR CHEST 1 V 51257 CHEST 1 VIEW: 12/29/2018 COMPARISON: November 26, 2014 CLINICAL HISTORY: Chest pain, sob FINDINGS: The cardiovascular silhouette is normal in size. No infiltrates or pulmonary edema is present. No pleural eff usions are seen. IMPRESSION: No acute pulmona ry disease. at 1121 Reported and signed by: Mauro Ziegler M.D. CC: Bernard SANDOVAL Technologist: Kimberlee Tse RT(Bethany) Trnscrd Benja e/Time/By: 12/29/2018 (1121) : By: [email or web address] Orig Print D/T: S: 2018 (1125) PAGE 1 Signed Report
== END 2020-04-01 12:58 | disposition home or self-care (01) ==
LOC: FSED 11:38
DX: M79.642 Pain in left hand (principal); S60.222A Contusion of left hand, initial encounter; S63.602A Unspecified sprain of left thumb, initial encounter; W51.XXXA Accidental striking against or bumped into by another person, initial encounter; D64.9 Anemia, unspecified; Z86.718 Personal history of other venous thrombosis and embolism
CPT/HCPCS: 99284

== ENCOUNTER 2021-01-19 06:26 | Emergency (ER) | payer OTHER ==
[~2021-01-19] VITALS: Ht 157.5 cm; Wt 65.3 kg
[2021-01-19] MEDS ORDERED: ACETAMINOPHEN-1 EAC3 PO (08:53)
== END 2021-01-19 09:14 | disposition home or self-care (01) ==
LOC: FSED 06:40
DX: R42 Dizziness and giddiness (principal); M54.2 Cervicalgia; D64.9 Anemia, unspecified; Z86.718 Personal history of other venous thrombosis and embolism; Z86.711 Personal history of pulmonary embolism
CPT/HCPCS: 70450; 93880; 93930; 99283

== ENCOUNTER 2021-07-04 08:34 | Emergency (ER) | payer OTHER ==
[~2021-07-04] VITALS: Ht 157.5 cm; Wt 65.8 kg
[~2021-07-04 08:34] MED LIST changes: +ACETAMINOPHEN-1 EAC3 PO
[2021-07-04] MEDS ORDERED: FAMOTIDINE 20 MG/2 ML VIAL IV ONE (08:57)
[2021-07-04] MEDS ORDERED: DONNATAL/LIDOCAINE/MAALOX 30 ML SUSP PO ONE (09:00)
[2021-07-04] MEDS ORDERED: BELLADONNA ALK/PHENOBARBITAL 5 ML UDC ONE (09:16)
[2021-07-04] MEDS ORDERED: MAGNESIUM/ALUMINUM/SIMETHICONE 30 ML UDC ONE (09:17)
[2021-07-04] MEDS ORDERED: FAMOTIDINE 20 MG TAB ONE (09:17)
[2021-07-04] MEDS ORDERED: SODIUM CHLORIDE 0.9% 50ML 50 ML ONE (10:34)
[2021-07-04] MEDS ORDERED: IOPAMIDOL 370 MG/ML 200 ML INFUS..BTL INJ ONE (10:34)
[2021-07-04] MEDS ORDERED: PEPCID20 MG PO (12:43)
[2021-07-04 13:09] VITALS: BP 127/85
== END 2021-07-04 13:11 | disposition home or self-care (01) ==
LOC: FSED 08:58
DX: R10.9 Unspecified abdominal pain (principal); Z86.718 Personal history of other venous thrombosis and embolism; Z86.711 Personal history of pulmonary embolism; Z91.14 Patient's other noncompliance with medication regimen; Z88.1 Allergy status to other antibiotic agents; Z88.5 Allergy status to narcotic agent; Z88.8 Allergy status to other drugs, medicaments and biological substances
CPT/HCPCS: 71045; 71260; 80053; 81003; 81025; 82553; 84484; 85025; 99284; Q9967

== ENCOUNTER 2022-08-03 23:32 | Emergency (ER) | payer SELFPAY ==
[~2022-08-03] VITALS: Ht 157.5 cm; Wt 65.8 kg
[~2022-08-03 23:32] MED LIST changes: +PEPCID20 MG PO
[2022-08-04] MEDS ORDERED: ACETAMINOPHEN500 MG PO (00:08)
[2022-08-04 00:28] VITALS: BP 141/87
== END 2022-08-04 00:25 | disposition home or self-care (01) ==
LOC: FSED 23:36
DX: R68.83 Chills (without fever) (principal); B34.9 Viral infection, unspecified; R53.81 Other malaise; D64.9 Anemia, unspecified; Z86.711 Personal history of pulmonary embolism
CPT/HCPCS: 81003; 87400; 99282